=== PATIENT | male | born 1950 | race Caucasian/White ===

== ENCOUNTER → 2017-04-05 | Outpatient (CLI) | payer OTHER ==
[~2017-04-05] MED LIST: ENAL10TA88 PO; FISHOIL PO; IBUP-103 PO; INSDGIPEN SC
[2017-04-05 13:10] LABS: ESTIMATED AVERAGE GLUCOSE 192 mg/dl; HA1C FLAG Normal (Normal)
== END | disposition home or self-care (01) ==
LOC: C.LABBFT 08:15
PROVIDERS: ATTEND Internal Medicine
DX: E11.65 Type 2 diabetes mellitus with hyperglycemia (principal)

== ENCOUNTER → 2017-09-26 | Outpatient (CLI) | payer OTHER ==
[2017-09-26 13:07] LABS: ALBUMIN 3.3 gm/dl (3.4-5.0); ALT/SGPT 20 U/L (12-78); AST/SGOT 9 U/L (15-37); BLOOD UREA NITROGEN 26 mg/dl (7-18); CALCIUM 8.9 mg/dl (8.5-10.1); CARBON DIOXIDE 28 mmol/L (21-32); CREATININE 1.11 mg/dl (0.60-1.40); GLUCOSE 172 mg/dl (70-99); POTASSIUM 4.4 mmol/L (3.5-5.1); SODIUM 136 mmol/L (136-145)
[2017-09-26 13:10] LABS: ALKALINE PHOSPHATASE 95 U/L (45-117); CHOLESTEROL 269 mg/dl (0-200); LDL CHOLESTEROL CALCULATED 179 mg/dl; TOTAL PROTEIN 7.4 gm/dl (6.4-8.2)
[2017-09-26 13:24] LABS: HEMOGLOBIN A1C 8.2 % (4.5-5.6)
[2017-09-26 13:25] LABS: BASO % 0.5 %; BASO ABS # 0.04 K/uL (0-0.2); EOS % 2.6 %; EOS ABS # 0.22 K/uL (0-0.5); HEMATOCRIT 40.6 % (42-52); HEMOGLOBIN 13.5 g/dL (14.0-18.0); IG# 0.02 K/uL (0.00-0.02); LYMPH % 26.6 %; LYMPH ABS # 2.25 K/uL (1.2-3.4); MEAN CELL VOLUME 86.2 fL (80-100); MEAN CORPUSCULAR HEMOGLOBIN 28.7 pg (25-34); MEAN CORPUSCULAR HGB CONC 33.3 g/dl (32-36); MONO % 5.8 %; MONO ABS # 0.49 K/uL (0.11-0.59); NEUT % 64.3 %; NEUT ABS # 5.44 K/uL (1.4-6.5); PLATELET COUNT 179 K/uL (130-400); RED CELL DISTRIBUTION WIDTH CV 13.7 % (11.5-14.5); RED CELL DISTRIBUTION WIDTH SD 43.1 fL (36.4-46.3); WHITE BLOOD COUNT 8.46 K/uL (4.8-10.8)
== END | disposition home or self-care (01) ==
LOC: C.LABBFT 08:42
PROVIDERS: ATTEND Internal Medicine
DX: E11.65 Type 2 diabetes mellitus with hyperglycemia (principal); I10 Essential (primary) hypertension; E78.5 Hyperlipidemia, unspecified

== ENCOUNTER → 2018-03-27 | Outpatient (CLI) | payer OTHER ==
[2018-03-27 12:25] LABS: BASO % 0.5 %; BASO ABS # 0.04 K/uL (0-0.2); EOS % 2.3 %; EOS ABS # 0.18 K/uL (0-0.5); HEMATOCRIT 38.8 % (42-52); HEMOGLOBIN 12.6 g/dL (14.0-18.0); IG# 0.02 K/uL (0.00-0.02); LYMPH % 25.1 %; LYMPH ABS # 1.98 K/uL (1.2-3.4); MEAN CELL VOLUME 85.5 fL (80-100); MEAN CORPUSCULAR HEMOGLOBIN 27.8 pg (25-34); MEAN CORPUSCULAR HGB CONC 32.5 g/dl (32-36); MEAN PLATELET VOLUME 11.1 fL (7.4-10.4); MONO % 7.4 %; MONO ABS # 0.58 K/uL (0.11-0.59); NEUT % 64.4 %; NEUT ABS # 5.08 K/uL (1.4-6.5); PLATELET COUNT 198 K/uL (130-400); RED CELL DISTRIBUTION WIDTH CV 13.8 % (11.5-14.5); RED CELL DISTRIBUTION WIDTH SD 42.7 fL (36.4-46.3); WHITE BLOOD COUNT 7.88 K/uL (4.8-10.8)
[2018-03-27 12:49] LABS: ALBUMIN 3.3 gm/dl (3.4-5.0); ALKALINE PHOSPHATASE 82 U/L (45-117); ALT/SGPT 19 U/L (12-78); AST/SGOT 10 U/L (15-37); BLOOD UREA NITROGEN 25 mg/dl (7-18); CALCIUM 8.7 mg/dl (8.5-10.1); CARBON DIOXIDE 26 mmol/L (21-32); CHOLESTEROL 254 mg/dl (0-200); CREATININE 1.03 mg/dl (0.60-1.40); GLUCOSE 149 mg/dl (70-99); LDL CHOLESTEROL CALCULATED 171 mg/dl; POTASSIUM 4.2 mmol/L (3.5-5.1); SODIUM 138 mmol/L (136-145); TOTAL PROTEIN 7.2 gm/dl (6.4-8.2)
[2018-03-27 12:51] LABS: HEMOGLOBIN A1C 7.7 % (4.5-5.6)
== END | disposition home or self-care (01) ==
LOC: C.LABBFT 08:41
PROVIDERS: ATTEND Internal Medicine
DX: E11.29 Type 2 diabetes mellitus with other diabetic kidney complication (principal)

== ENCOUNTER 2019-10-15 06:18 | Observation (INO) ==
--- NOTE | 2019-09-26 09:07 | PAT Medication Instructions ---
Medication Instructions Date of Service September 26, 2019 Home Medications Medication Instructions Recorded tramadol 50 mg tablet 50 mg PO Q8H PRN #40 tab 08/27/19 pen needle, diabetic 31 gauge x #100 ea 09/17/1911/03" enalapril maleate 10 mg tablet 10 mg PO QAM #90 tab 04/19/19 [History Confirmed 09/23/19] metformin 500 mg tablet 1,000 mg PO QAM #180 tab 04/19/19 [History Confirmed 09/23/19] tramadol 50 mg tablet 50 mg PO Q8H PRN #40 tab 08/27/19 [Rx Confirmed 09/23/19] aspirin 325 mg PO DAILY PRN 09/23/19 [History Confirmed 09/23/19] ibuprofen 200 mg PO Q6H PRN 09/23/19 [History Confirmed 09/23/19] insulin degludec [Tresiba U-100 Insulin] 50 unit SUBCUT QAM 09/23/19 [History Confirmed 09/23/19] magnesium oxide 1,000 mg PO QAM 09/23/19 [History Confirmed 09/23/19] ASK your surgeon for instructions ibuprofen 200 mg PO Q6H PRN 09/23/19 [History Confirmed 09/23/19] ASK your prescriber and surgeon aspirin 325 mg PO DAILY PRN 09/23/19 [History Confirmed 09/23/19] DO NOT take the morning of surgery enalapril maleate 10 mg tablet 10 mg PO QAM #90 tab 04/19/19 [History Confirmed 09/23/19] metformin 500 mg tablet 1,000 mg PO QAM #180 tab 04/19/19 [History Confirmed 09/23/19] magnesium oxide 1,000 mg PO QAM 09/23/19 [History Confirmed 09/23/19] Take morning of surgery With a small sip of water, OTHERWISE NOTHING TO EAT OR DRINK AFTER MIDNIGHT: tramadol 50 mg tablet 50 mg PO Q8H PRN (okay to take up to 4 hours prior to surgery if needed) Take evening before surgery tramadol 50 mg tablet 50 mg PO Q8H PRN (if needed) Insulin Dependent Diabetic Patients * Test your blood sugar the morning of surgery * If Blood Sugar is GREATER THAN 150, take HALF of your regular dose of: insulin degludec [Tresiba U-100 Insulin] take 25 units * If Blood Sugar is LESS THAN 150, DO NOT TAKE ANY: insulin degludec [Tresiba U- 100 Insulin] Other Notes If you have any questions please call us at [phone] or [phone] or [phone] or [phone]
--- NOTE | 2019-09-30 09:29 | Anesthesiology Consultation ---
Date of Service September 30, 2019 Assessment & Plan (1) Encounter for pre-operative examination: - Check BSG AM DOS - ASA instructions: per surgeon/prescriber Chart Review Chart Review: Acceptable Risk for Surgery and Patient seen in Pre Admission Testing Teaching & Discussion Pre-Anesthesia Teaching/Discussion Notes: Instructed NPO after midnight before surgery,except medications with 15 cc of water. Medication instructions provided according to the PAT guidelines. History Surgery Operation Date: 10/15/19 11:40 Proposed Procedures p Right Total Knee Arthroplasty - Mich Carnes DO Height/Weight Height: 5 ft 11 in Weight: 142.1 kg Allergies Allergy/AdvReac Type Severity Reaction Status Date / Time codeine AdvReac Mild Boscobel Verified 09/30/19 09:31 "wacky" tramadol AdvReac Unknown [place]el Verified 09/30/19 09:31 "wacky" Medications Home Medications Medication Instructions Recorded Confirmed Last Taken enalapril maleate 10 mg tablet 10 mg PO QAM #90 tab 04/19/19 09/30/19 Unknown lancets 33 gauge #100 ea 04/19/19 09/30/19 Unknown metformin 500 mg tablet 1,000 mg PO QAM #180 tab 04/19/19 09/30/19 Unknown tramadol 50 mg tablet 50 mg PO Q8H PRN #40 tab 08/27/19 09/30/19 Unknown pen needle, diabetic 31 gauge x #100 ea 09/17/19 09/30/19 Unknown 3/16" aspirin 325 mg PO DAILY PRN 09/23/19 09/30/19 Unknown ibuprofen 200 mg PO Q6H PRN 09/23/19 09/30/19 Unknown insulin degludec [Tresiba U-100 50 unit SUBCUT QAM 09/23/19 09/30/19 Unknown Insulin] magnesium oxide 1,000 mg PO QAM 09/23/19 09/30/19 Unknown Past Medical History Medical History Anemia chronic, baseline hgb 12-13 range per chart review Diabetes mellitus, type 2 IDDM Diabetic neuropathy B/L LE 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 (no ROM limitations) History of prostate cancer s/p XRT Hypertension Morbid obesity Osteoarthritis Exercise / Class Metabolic Activity III < 4 Walking/Shop/Light housework Past Family History Family History Mother Family history of diabetes mellitus Past Surgical History Surgical History History of amputation of toe X2 - SMALL TOE LEFT; 2 TIPS TOES RIGHT FOOT History of surgical procedure on mouth TO REMOVE CANCER FORM LIP AND MOUTH Hx of hernia repair Hx of nasal polypectomy Past Anesthesia History No Hx of Anesthesia Complications and No Family Hx of Anesthesia Complications History of PONV No Hx of PONV and No Hx of Motion Sickness Social History Smoking Status: Former smoker Do You Dip or Chew Tobacco: No (QUIT AGE 27) Smoking End Date: Quit 50 YR AGO Hx Alcohol Use: Yes Alcohol type: beer, wine and hard liquor alcohol intake frequency: a few times a month Hx Substance Use: No Review of Systems Patient denies chest pain, shortness of breath, cough, wheezing, palpitations. Physical Exam Vital Signs VITALS BP 138/82 P 91 TEMP 98.1 SP02 98%RA RESP 18 PHYSICAL Full neck and c-spine range of motion. Full TMJ range of motion. TMD 4 finger breaths Mallampati Score 2 Dentition: full dentures upper/lower Lungs: clear throughout to auscultation Cardiac: regular rate and rhythm, no murmurs noted Spine: normal Carotid arteries: negative bruit Extremities: no edema Trimmed nuñez Testing Laboratory Results 09/30/19 09:44 09/30/19 09:44 PT 10.3 Seconds (9.0-12.0) 09/30/19 09:44 INR 1.0 (0.9-1.1) 09/30/19 09:44 APTT 28.9 Seconds (21.0-31.0) 09/30/19 09:44 Blood Type A Negative 09/30/19 09:44 Antibody Screen NEGATIVE 09/30/19 09:44 08/28/19 HGBA1C 7.9% (surgeon's office made aware) Electrocardiogram Date: 09/30/19 Normal sinus rhythm with sinus arrhythmia at 86 bpm. LAD. Low voltage QRS. Incomplete right bundle branch block. No significant change compared to 09/17/2008 per cardiology. Chest X-Ray Date: 09/30/19 Mildly enlarged heart. Atherosclerotic calcification of the thoracic aorta. Mild bibasilar atelectasis.
[2019-09-30 10:28] LABS: Basophils # (auto) 0.04 K/uL (0-0.2); Basophils % (auto) 0.5 %; Eosinophils # (auto) 0.11 K/uL (0-0.5); Eosinophils % (auto) 1.3 %; Hematocrit (blood only) 38.2 % (42-52); Hemoglobin 12.6 g/dL (14.0-18.0); Immature Granulocytes # (auto) 0.01 K/uL (0.00-0.02); Immature Granulocytes % (auto) 0.1 %; Mean Corpuscular Hemoglobin 28.6 pg (25-34); Mean Corpuscular Volume 86.6 fL (80-100); Mean Platelet Volume 10.5 fL (7.4-10.4); Monocytes # (auto) 0.52 K/uL (0.11-0.59); Monocytes % (auto) 6.3 %; Neutrophils # (auto) 5.68 K/uL (1.4-6.5); Neutrophils % (auto) 68.8 %; Platelet Count 211 K/uL (130-400); RDW Coefficient of Variation 13.8 % (11.5-14.5); RDW Standard Deviation 43.5 fL (36.4-46.3); Red Blood Count 4.41 M/uL (4.7-6.1); White Blood Count 8.26 K/uL (4.8-10.8)
--- NOTE | 2019-09-30 10:31 | XRay Report ---
TWO VIEW CHEST CLINICAL HISTORY: Preoperative examination. FINDINGS: PA and lateral chest radiographs are compared to study dated 07/18/2007 and correlated with PET/CT dated 09/05/2018. The heart is mildly enlarged noting atherosclerotic calcification of the tho racic aorta. The pulmonary vasculature is noncongested. There is mild bibasilar atelectasis. The lung s and pleural spaces are otherwise clear. There is no pneumothorax. The skeletal structures are osteo penic. The bony thorax appears intact. IMPRESSION: Mild cardiac enlargement with no active disease in the chest. ACT 112: Negative or not required by law. Electronically signed by: Darnell Fair M.D. 09/30/2019 10:30 AM
[2019-09-30 10:36] LABS: BUN Creatinine Ratio 21.9 (10-20); Creatinine Clr Calc Pharmacy 100.2 ml/min; Est GFR (African American) 89.1; Est GFR (Non-African American) 76.8; Potassium 4.3 mmol/L (3.5-5.1)
[2019-09-30 10:38] LABS: Partial Thromboplastin Ratio 1.1; Partial Thromboplastin Time 28.9 Seconds (21.0-31.0); Prothrombin Time 10.3 Seconds (9.0-12.0)
--- NOTE | 2019-09-30 12:21 | Electrocardiogram Report ---
Test Reason : Blood Pressure : / mmHG Vent. Rate : 086 BPM Atrial Rate : 086 BPM P-R Int : 136 ms QRS Dur : 104 ms QT Int : 388 ms P-R-T Axes : 063 -31 014 degrees QTc Int : 464 ms Normal sinus rhythm with sinus arrhythmia Left axis deviation Low voltage QRS Incomplete right bundle branch block Abnormal ECG When compared with ECG of 17-SEP-2008 14:20, No significant change was found Confirmed by Fran Howard ([id number]) on 09/30/2019 12:20:33 PM Referred By: Mich Carnes Confirmed By:Fran Howard
--- NOTE | 2019-10-09 07:59 | History & Physical Report ---
Date of Service October 09, 2019 Assessment & Plan (1) Right knee DJD: We will proceed with a right total knee arthroplasty. Postoperatively he will be started on aspirin for DVT prophylaxis and insulin for glucose control. He will be kept overnight in the hospital for postoperative medical management. He plans to go to outpatient physical therapy at [facility] in [place] upon discharge. Present on Admission?: Yes History of Present Illness Chief Complaint: Primary osteoarthritis of the right knee Primary Care Provider: Braydon Arroyo MD Kolton is a pleasant 69-year-old male who has been dealing with chronic increasing right knee pain. The x-rays did not look too bad so I sent him for a n MRI of his knee. The MRI showed advanced arthritis in the medial compartment with fluid in the distal medial femoral condyle. It also showed complex medial meniscus tearing. Because of his weight, he is not a candidate for a unicompartmental knee arthroplasty. After discussions in the office, he has elected to proceed with a right total knee arthroplasty. Allergies Allergy/AdvReac Type Severity Reaction Status Date / Time codeine AdvReac Mild Jordan Verified 09/30/19 09:31 "wacky" tramadol AdvReac Unknown Jordan Verified 09/30/19 09:31 "wacky" Home Medications Home Medications Medication Instructions Recorded Confirmed Type enalapril maleate 10 mg tablet 10 mg PO QAM #90 tab 04/19/19 09/30/19 History lancets 33 gauge #100 ea 04/19/19 09/30/19 History metformin 500 mg tablet 1,000 mg PO QAM #180 tab 04/19/19 09/30/19 History tramadol 50 mg tablet 50 mg PO Q8H PRN #40 tab 08/27/19 09/30/19 Rx pen needle, diabetic 31 gauge x #100 ea 09/17/19 09/30/19 Rx 3/16" aspirin 325 mg PO DAILY PRN 09/23/19 09/30/19 History ibuprofen 200 mg PO Q6H PRN 09/23/19 09/30/19 History insulin degludec [Tresiba U-100 50 unit SUBCUT QAM 09/23/19 09/30/19 History Insulin] magnesium oxide 1,000 mg PO QAM 09/23/19 09/30/19 History Past Med/Surg History Medical History Anemia chronic, baseline hgb 12-13 range per chart review Diabetes mellitus, type 2 IDDM Diabetic neuropathy B/L LE 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 (no ROM limitations) History of prostate cancer s/p XRT Hypertension Morbid obesity Osteoarthritis Surgical History History of amputation of toe X2 - SMALL TOE LEFT; 2 TIPS TOES RIGHT FOOT History of surgical procedure on mouth TO REMOVE CANCER FORM LIP AND MOUTH Hx of hernia repair Hx of nasal polypectomy Family History Mother Family history of diabetes mellitus Social History Preferred Language: Irish Communication Ability: Effective Beliefs That Will Affect Care: None Current Living Situation: Spouse Feels Safe at Home: Yes Safety Concerns: Feels Safe At This Time Smoking Status: Former smoker Do You Dip or Chew Tobacco: No (QUIT AGE 27) ; Smoking End Date: Quit 50 YR AGO ; Second Hand Exposure: Yes (PREVIOUS) ; Hx Alcohol Use: Yes Alcohol type: beer, wine and hard liquor Hx Substance Use: No Review of Systems All systems reviewed & are unremarkable except as noted in HPI & below Physical Exam Constitutional: WD/WN, vitals as above Eyes: PERRL, conjunctivae normal, anicteric sclerae ENMT: external ear and nose normal, oropharynx normal Neck: trachea midline, no thyromegaly Respiratory: normal respiratory effort Cardiovascular: RRR, no murmur, no edema Gastrointestinal (Abdomen): normal bowel sounds, soft, nontender, no hepatosplenomegaly Musculoskeletal: On physical examination of the right knee there is a trace ef fusion. There is near full range of motion and no evidence of instability. There is significant tenderness palpation along the medial and lateral joint lines and over the distal femoral condyles. Psychiatric: A+Ox3, euthymic affect Results & Data Diagnostic Findings Radiographs of the right knee demonstrate mild osteoarthritis of the right knee. MRI of the right knee does show advanced osteoarthritis of the medial compartment with fluid in the distal medial femoral condyle and complex medial meniscus tearing.
[~2019-10-15 06:18] MED LIST changes: +ACETAMINOPHEN 500 MG TAB PO SCH; +CEFAZOLIN 3000MG 72.5 ML IV SCH; -ENAL10TA88 PO; +FAMOTIDINE 20 MG TAB PO SCH; -FISHOIL PO; +GABAPENTIN 300 MG CAP PO SCH; -IBUP-103 PO; -INSDGIPEN SC; +LR 15ML/HR IV SCH; +LR 60ML/HR IV SCH; +ROPIVACAINE 0.5% HCL/PF 150 MG, BUPIVACAINE 0.5% MPF 30 ML, EPINEPHrine 30MG/30ML (OR U... INSTIL SCH; +TRANEXAMIC ACID 1,000 MG **IV Intra-op IV SCH; +TRANEXAMIC ACID 1,000 MG **IV Pre-op IV SCH; +dexAMETHasone 4 MG TAB PO SCH
[2019-10-15] MEDS ORDERED: BUPIVACAINE 0.5 % 5 MG/1 ML PF 10ML VIAL ONE (06:34)
[2019-10-15] MEDS ORDERED: BUPIVACAINE 0.25% 30 ML VIAL ONE (06:34)
[2019-10-15] MEDS ORDERED: MIDAZOLAM HCL 1 MG/ML 2ML VIAL ONE (07:49)
[2019-10-15] MEDS ORDERED: fentaNYL citrate 100 MCG/2 ML VIAL ONE (07:49)
[2019-10-15] MEDS ORDERED: ePHEDrine sulfate 50 MG/ML AMP IV PRN (09:15)
[2019-10-15] MEDS ORDERED: fentaNYL citrate 100 MCG/2 ML VIAL IV PRN (09:15)
[2019-10-15] MEDS ORDERED: ATROPINE SULFATE 0.1 MG/ML 10ML SYR IV PRN (09:15)
[2019-10-15] MEDS ORDERED: ONDANSETRON INJ 2 MG/ML 2 ML VIAL IV PRN ×2 (09:15→13:52)
[2019-10-15] MEDS ORDERED: ORTHO JOINT ANESTHETIC ONE (10:25)
--- NOTE | 2019-10-15 10:42 | History & Physical Bridge Note ---
Date of Service October 15, 2019 History & Physical Bridge Note I have examined the patient, reviewed the History & Physical and in the interval since the performance of the History & Physical I have noted the following changes of clinical significance: no changes noted
[2019-10-15] MEDS ORDERED: LIDOCAINE HCL 2% 2 ML VIAL/AMP(20MG/ML) INFIL ONE (11:36)
[2019-10-15] MEDS ORDERED: PROPOFOL IV EMULSION 10 MG/ML 20 ML VIAL IV ONE ×3 (11:36→11:56)
--- NOTE | 2019-10-15 12:43 | Operative Report ---
PG Post Operative Report Pre & Post Diagnosis Operation Date: 10/15/19 08:50 Pre-Op Diagnosis: Right Knee Degenerative Joint Disease Post-Op Diagnosis: Right Knee Degenerative Joint Disease I identified the patient and participated in the time-out.: Yes Procedure Operation Date: 10/15/19 08:50 Actual Procedures p Right Total Knee Arthroplasty (22 modifier for morbid obesity )(Right) - Mich Carnes DO Surgeon Mich Carnes DO [employer] Mich Stokes PAC Estimated Blood Loss 20 Findings Consistent with Post-Op Diagnosis Specimens Right femoral and tibial bone Complications none Disposition Disposition: Recovery Room Indications Nathanael is a pleasant 69-year-old male who presented my office with chronic increasing right knee pain. X-rays and clinical examination were diagnostic for primary osteoarthritis of the right knee. After failing conservative treatment, he elected to proceed with a right total knee arthroplasty. Description of Procedure Modifier 22: This case took about 50% longer than a standard joint replacement due to his size. He has a BMI of 43.4 which is the category of morbid obesity. I had to use a stemmed tibial component with concerns of loosening because of his size. Implants used: I used a [employer] Vanguard total knee arthroplasty system with a size 72.5 femur, 79 360 tibia with a size 5 offset and an 80 mm s stem, 34 patella, and a size 12 PS plus polyethylene bearing. All components were cemented in place with Palacos G cement. Yeyo arrived [facility] for the above procedure. He was seen in the preoperative holding area and the operative extremity was identified and signed. He was given a preoperative antibiotic, TXA, a spinal anesthetic and an adductor nerve block. He was taken back to the operating room and laid on the table in supine position. He was given basic sedation. The operative knee was then prepped and draped in sterile fashion. A timeout was done, and the patient and the operative extremity was properly identified. A midline incision was made directly over the patella. Dissection was taken down to the extensor mechanism. A subvastus arthrotomy was used. The medial retinaculum was released and the fat pad was mostly excised. The knee was flexed and the ACL, PCL, and meniscus were removed. A drill was sent down the center of the femoral canal followed by an intramedullary simon. Off that simon a distal femoral cutting block was placed. 9 mm was resected off the distal femur at 5 of valgus. A posterior referencing AP sizing guide was then placed on the distal femur. The femur measured to be a size 72.5. 2 drill holes were placed in 3 of external rotation. A 4-in-1 cutting block was then impacted into place. Anterior, posterior, and chamfer cuts were then made. The posterior stabilizing box guide was then impacted into place and the box was resected for the posterior stabilizing component. The proximal tibia was then exposed. Sequential reaming of the tibia up to a size 10 reamer was done. Off that reamer a proximal tibial resection guide was placed in the proximal tibia was resected. The tibia measured to be a size 79. The best fit was with a 5 mm offset. The central stem was then drilled and a large ring was punched. The posterior aspect of the knee was then opened up and any additional meniscus fragments and osteophytes were removed. Trial components were then placed. I used a size 12 PS plus polyethylene insert. The knee was brought through a full range of motion and felt to be stable. The patella was then everted and 8 mm was resected off the posterior aspect of the patella. The patella measured to be a size 34. 3 peg holes were then drilled. A trial patella was placed. The knee was once again brought through a full range of motion and felt to be stable. Trial components were then removed. The surrounding soft tissues were injected with 100 cc of an orthopedic pain control cocktail. All components were then cemented into place with Palacos G cement. The final polyethylene insert was then snapped into place and the anterior bar was locked. Once cement was dry the tourniquet was deflated. Hemostasis was obtained. A dilute betadyne lavage was then done for 3 minutes. The joint was then irrigated with normal saline solution. The subvastus arthrotomy was then closed with #1 Vicryl suture. The skin was closed with 2-0 Vicryl, 3-0V lock suture, and laurence. A soft compressive dressing was placed. He was then transferred to a hospital bed and taken to the postanesthesia care unit in stable condition. He tolerated the procedure well. Mich Stokes PA-C, was present for the entire procedure. He was critical for patient positioning, prepping, draping, retraction exposure, wound closure and application of sterile dressing. I attest to the content of the Intraoperative Record and any orders documented therein. Any exceptions are noted below.
--- NOTE | 2019-10-15 13:20 | XRay Report ---
XR knee RT 1 or 2V routine CLINICAL HISTORY: Surgical Post Op COMPARISON: None. DISCUSSION: Anatomic alignment post total right knee arthroplasty. Could contact between prosthetic a nd underlying bone. Expected soft tissue postoperative change. IMPRESSION: Anatomic alignment posttotal right knee arthroplasty. ACT 112: Negative or not required by law. The above report was generated using voice recognition software. It may contain grammatical, syntax or spelling errors. Electronically signed by: Dwaine Solis M.D. 10/15/2019 1:19 PM
--- NOTE | 2019-10-15 13:35 | Anesthesiology Progress Note ---
Date of Service October 15, 2019 Anesthesia Post Procedure Vital Signs Vital Signs: Temp Pulse Pulse Resp BP BP Pulse Ox 10/15/19 13:15 36.9 C 82 18 129/72 96 10/15/19 13:05 80 18 119/68 100 10/15/19 12:55 84 18 120/68 100 10/15/19 12:47 37.3 C 18 111/63 98 10/15/19 06:56 37.0 C 82 22 144/92 H 96 Transfer of Care Handoff Completed per policy Notes Mental Status: alert / awake / arousable and participated in evaluation Nausea / Vomiting: adequately controlled Pain: adequately controlled Airway Patency, RR, SpO2: stable & adequate BP & HR: stable & adequate Hydration State: stable & adequate Neuraxial Anesthesia: was administered and sensory block is resolving Anesthetic Complications: no major complications apparent and Pt Satisfied with anesthetic care
[2019-10-15] MEDS ORDERED: METOCLOPRAMIDE HCL INJ 5 MG/ML 2 ML VIAL IV PRN (13:52)
[2019-10-15] MEDS ORDERED: NALOXONE HCL 0.4 MG/1 ML VIAL/CARP IV PRN (13:52)
[2019-10-15] MEDS ORDERED: bisacodyL 10 MG SUPP PR PRN (13:52)
[2019-10-15] MEDS ORDERED: OXYCODONE HCL IR 5 MG TAB (IMMEDIATE RELEASE) PO PRN (13:52)
[2019-10-15] MEDS ORDERED: MAGNESIUM HYDROXIDE SUSP 30 ML UDC PO PRN (13:52)
[2019-10-15] MEDS ORDERED: HYDROmorphone INJ 0.5 MG/0.5 ML SYR IV PRN (13:52)
[2019-10-15] MEDS ORDERED: PHARMACY GLYCEMIC MGMT CONSULT PRN (13:59)
[2019-10-15] MEDS ORDERED: GLUCAGON FOR INJ 1 MG VIAL IM PRN (14:15)
[2019-10-15] MEDS ORDERED: DEXTROSE 50% 50 ML SYRINGE IV PRN (14:15)
[2019-10-15] MEDS ORDERED: GLUCOSE 10 TABS/TUBE PO PRN (14:15)
[2019-10-15] MEDS ORDERED: GLUCOSE 40% GEL 15 GM TUBE PO PRN (14:15)
[2019-10-15] MEDS ORDERED: CARBOHYDRATES FOR HYPOGLYCEMIA PO PRN (14:15)
[2019-10-15] MEDS: SODIUM CHLORIDE 0.9% 1000ML 1,000 ML IV SCH (14:31)
[2019-10-15] MEDS: ACETAMINOPHEN 500 MG TAB PO SCH ×2 (14:31→21:19)
--- NOTE | 2019-10-15 15:45 | Pharmacy Report ---
Glycemic Control Consultation - Date of Service October 15, 2019 - Scope Scope: Glycemic Pharmacist consulted by Mich Stokes on 10/15 for glycemic control and to write orders per [facility] inpatient glycemic control protocol - Objective Weight: 141.2 kg Accuchecks BSG (last 24hrs): 10/15/19 10/15/19 06:46 12:55 POC Glucose 164 H 193 H - Recent Pertinent Medications Outpatient Anti-diabetic Regimen: * Tresiba 50 units Qam, metformin 1 gm qam * A1c = 7.9 % 08/2019 Risk Factors for Insulin Resistance: * Steroids: dxm 8 * Diet: t2dm - Assessment & Plan Assessment & Plan: ASSESSMENT: * 69 year old s/p right TKA. Pharmacy consulted for glycemic management. Patient did receive steroids preop therefore anticipate steroid induced hyperglycemia * Will utilize basal/bolus dosing postop PLAN FOR INPATIENT GLYCEMIC CONTROL: * Holding outpatient oral diabetes medications * Basal insulin * Lantus 15-25 HS based upon BSG scale * Bolus insulin * NovoLog per scale ACHS or Q6hrs while NPO * Goal Range: Low 110 mg/dL - High 140 mg/dL * Correction Factor: 20 mg/dL/unit * Nutritional / Prandial insulin per carb ratio of 1 unit per 6 grams CHO consumed OR PLAN FOR INPATIENT GLYCEMIC CONTROL: * Continuing / Increasing / decreasing Lantus/NPH to [] units SQ BID * Continuing / changing correction factor to [] mg/dl/unit * Continuing / changing carb ratio to 1 unit per [] grams CHO consumed * Continuing / changing goal range to Low [] mg/dL - High [] mg/dL * Please note that the plan above was derived based on current level of insulin resistance and hospital stress. These recommendations are appropriate for inpati ent admission only. Plan of care upon discharge will need to be reassessed to avoid potential outpatient hypo/hyperglycemia. Thank you.
[2019-10-15] MEDS: CEFAZOLIN 2000MG 2,000 MG/15 ML SYR IV SCH (17:18)
[2019-10-15] MEDS: KETOROLAC TROMETHAMINE 15 MG/ML VIAL IV SCH (17:18)
[2019-10-15] MEDS ORDERED: INSULIN GLARGINE SOLOSTAR 100 UNITS/ML 3 ML PEN SC ONE (17:30)
[2019-10-15] MEDS: INSULIN ASPART 100 UNITS/ML 3 ML PEN SC SCH ×2 (18:32→21:15)
[2019-10-15] MEDS ORDERED: INSULIN GLARGINE SOLOSTAR 100 UNITS/ML 3 ML PEN SC SCH (21:00)
[2019-10-15] MEDS ORDERED: SENNA 8.6 MG TAB PO SCH (21:00)
[2019-10-15] MEDS: DOCUSATE SODIUM 100 MG CAP PO SCH (21:19)
[2019-10-16] MEDS: KETOROLAC TROMETHAMINE 15 MG/ML VIAL IV SCH ×3 (00:18→12:42)
[2019-10-16] MEDS: INSULIN ASPART 100 UNITS/ML 3 ML PEN SC SCH ×4 (00:19→12:47)
[2019-10-16] MEDS: CEFAZOLIN 2000MG 2,000 MG/15 ML SYR IV SCH (01:37)
[2019-10-16] MEDS: SODIUM CHLORIDE 0.9% 1000ML 1,000 ML IV SCH (01:37)
[2019-10-16] MEDS: ACETAMINOPHEN 500 MG TAB PO SCH ×2 (06:21→12:43)
--- NOTE | 2019-10-16 06:23 | Orthopedic Progress Note ---
Date of Service October 16, 2019 Assessment & Plan (1) History of total right knee replacement: Overall he is doing very well. He is not having too much pain in the right knee. He will be seen by physical therapy this morning for ambulation and range of motion exercises. He is on aspirin for DVT prophylaxis. He can be discharged home later today. He will follow-up with orthopedics in 2 weeks. Present on Admission?: Yes Subjective Kolton was seen and examined at bedside this morning. Overall is doing very well. Is not having much pain in the right knee. He has already been up and ambulating around the nurses station. He has no complaints. Physical Exam Musculoskeletal: On physical examination of the right knee, the dressing is clean and dry. He has active dorsiflexion and plantarflexion of the right ankle. Sensation is intact throughout. Results & Data ([facility]) Vital Signs (Past 12 Hours) Vital Signs Temp Pulse Resp BP Pulse Ox 10/16/19 03:58 36.6 C 79 18 110/66 97 10/15/19 23:12 36.5 C 93 H 16 117/73 95 10/15/19 21:39 36.6 C 88 18 133/81 93 Diagnostic Findings Postoperative x-rays of the right knee show the prosthesis to be in anatomic alignment without any evidence of fracture, dislocation, or loosening. PG Care Time/CCT Total # of Minutes Spent Total Time Spent with Patient: Total time spent is greater than 50% in coordination of care (as documented) at patient's floor/unit and/or counseling patient: Coding Level of Care Code None Diagnoses History of total right knee replacement Z96.651
--- NOTE | 2019-10-16 06:28 | Discharge Summary ---
Date of Service October 16, 2019 Admission HPI Per Admitting Provider Kolton is a pleasant 69-year-old male who has been dealing with chronic increasing right knee pain. The x-rays did not look too bad so I sent him for an MRI of his knee. The MRI showed advanced arthritis in the medial compartment with fluid in the distal medial femoral condyle. It also showed complex medial meniscus tearing. Because of his weight, he is not a candidate for a unicompartmental knee arthroplasty. After discussions in the office, he has elected to proceed with a right total knee arthroplasty. Principal Diagnosis Right total knee arthroplasty Discharge Data Allergies Allergy/AdvReac Type Severity Reaction Status Date / Time tramadol AdvReac Intermediate [place] Verified 10/15/19 06:52 "wacky" codeine AdvReac Mild [place] Verified 10/15/19 06:52 "wacky" Consultations 10/15/19 13:52 Consult Case Management - Discharge Planning Routine Procedures Performed Operation Date: 10/15/19 08:50 Actual Procedures p Right Total Knee Arthroplasty(Right) - Mich Carnes DO Ordered Studies 10/15/19 05:00 US - OR guided needle placemen Routine Hospital Course (1) History of total right knee replacement: On October 15, 2019 Kolton arrived at [facility] and underwent a right total knee arthroplasty without complication. He had a spinal anesthetic. Postoperatively he was started on aspirin for DVT prophylaxis and discharged to general orthopedic floors. His hospital course was uneventful. On postop day #1 his H&H was stable and his pain was well controlled. He was able to participate well with physical therapy doing ambulation and range of motion exercises. He was then discharged home. He will follow-up with orthopedics in 2 weeks. Total Time Total Time Spent Total Time Spent (In Minutes): 20 Discharge Plan Discharge Items Reason For Visit: Right Knee Degenerative Joint Disease Discharge Diagnosis: Right total knee arthroplasty Activity: As commented below Non-emergency contact: Surgeon Call non-emergency contact if: your wound has increased redness and your wound has increased drainage Follow-up/Referrals: Braydon Arroyo MD [Primary Care Provider] - Diet: Regular Addtl Attending Provider Instructions: Activity and Therapy Recommendations: * If you are using [facility] then therapy will be provided at your home until they feel you have accomplished all of your goals. * If you are using [facility] then Physical Therapy will be provided until they feel you are ready to start Outpatient Physical Therapy. * If you are not using home therapy then Outpatient Physical Therapy should start about 3-5 days from your day of surgery. Therapy will last about 6-10 weeks * It is important not to put a pillow under your knee when you are relaxing or sleeping. It is just as important to make sure you are getting your knee perfectly straight as it is to regain your knee bend. * You were shown a series of exercises in the hospital. Do these exercises three times each day including the exercises you were shown in physical therapy. * Get up and walk several times each day. For the first four weeks, try not to stand or walk for more than one hour at a time. If you do stand or walk for more than one hour, you will not hurt anything, but your leg will likely swell. * As you feel comfortable, you may change from the walker or crutches to a cane and then to independent walking. Medications: * Narcotic You will likely be sent home from the hospital with a prescription for the narcotic pain medication that worked best throughout your stay. * Aspirin Most patients will be required to take Aspirin 81mg twice a day for 6 weeks after surgery. This is obtained [id number] and a prescription is not necessary. * Other medications may be prescribed for specific circumstances. If you have any questions, please call the office at . * Resume previous home medications unless otherwise instructed TEDs/Elastic Stockings: The white elastic stockings help limit swelling and prevent blood clots from forming in your legs.~ The more you wear them, the more they work. Wear them for six weeks. Dressing Care: If the incision is not draining then you may leave the laurence open to air. If there is a little bit of drainage or if the laurence are getting stuck on your clothing then cover the incision with a dry dressing. The laurence will be removed at your 2 week follow-up appointment. Showering: You may shower 5 days from the day of surgery. Let the soapy shower water run over the laurence and pat them dry. Do not scrub or soak the incision. Things To Watch For: * Drainage from the incision site that occurs more than one week after your surgery. * Increased redness at the incision site. * Fever above 102 degrees Fahrenheit. * Unusual chest pain or shortness of breath. * Call [facility] at with any of the above problems Follow-Up Visit: Follow-up with Dr. Carnes 2-3 weeks after your day of surgery. An appointment was probably scheduled when you signed-up for surgery in the office. If you have any questions call Office Instructions: More detailed instructions as well as Frequently Asked Questions were provided in a folder by our office when you signed-up for surgery. Please review these instructions when you get home. If you have any further questions or concerns, please feel free to call the office at [phone] Pending Studies at Discharge: No Stand-Alone Forms: My [facility] Spyder Lynk, Smoking Cessation Medications and DC Order Prescriptions: New aspirin [Adult Aspirin Regimen] 81 mg tablet,delayed release (DR/EC) 81 mg PO BID Qty: 42 RF: 0 hydrocodone-acetaminophen [[place]] 5-325 mg tablet 1 tab PO Q6H PRN (Reason: pain) Qty: 30 RF: 0 Continued enalapril maleate [Vasotec] 10 mg tablet 10 mg PO QAM Qty: 90 RF: 0 metformin 500 mg tablet 1,000 mg PO QAM Qty: 180 RF: 0 (DME) lancets [OneTouch Delica Lancets] 33 gauge misc See Dose Instructions .ROUTE .MEDSUPPLY Qty: 100 RF: 0 (DME) pen needle, diabetic [BD Ultra-Fine Mini Pen Needle] 31 gauge x 3/16" needle See Rx Instructions .ROUTE .MEDSUPPLY Qty: 100 RF: 2 ibuprofen 200 mg Tablet 200 mg PO Q6H PRN (Reason: Pain) RF: 0 magnesium oxide 500 mg Tablet 1,000 mg PO QAM RF: 0 Tresiba U-100 Insulin 100 unit/mL Solution 50 unit SUBCUT QAM RF: 0 Discontinued tramadol 50 mg tablet 50 mg PO Q8H PRN (Reason: pain) Qty: 40 RF: 0 aspirin 325 mg Tablet 325 mg PO DAILY PRN (Reason: Pain) RF: 0 Krames/Other Patient Handouts: Diabetes Resources, Diabetes Treating Minor Foot Infections, Diabetes Healthy Meals, Blood Sugar Manage Exercise, Diabetes Keep Feet Healthy, Diabetes Inspect Feet, Diabetes Body Care, Diabetes Sick Day Plan, Diabetes Exercise Benefits, Diabetes Exercise Get Started, Diabetes Activity Tips, Diabetes Driving Issues, Diabetes Exercise Plan, Diabetes Taking Meds, Diabetes Foot Care Program, Diabetes Toolkit Admission Data Admit Date/Time: 10/15/19 12:50 Attending Provider: Mich Carnes Admit Provider: Mich Carnes Primary Care Provider: Braydon Arroyo Coding Level of Care Code D/C Day Management <30 mins Diagnoses History of total right knee replacement Z96.651
[2019-10-16 06:47] LABS: Hematocrit (blood only) 32.5 % (42-52); Hemoglobin 11.1 g/dL (14.0-18.0); Mean Corpuscular Hemoglobin 28.8 pg (25-34); Mean Corpuscular Hgb Conc 34.2 g/dL (32-36); Mean Corpuscular Volume 84.2 fL (80-100); Mean Platelet Volume 10.6 fL (7.4-10.4); Platelet Count 213 K/uL (130-400); RDW Coefficient of Variation 13.4 % (11.5-14.5); RDW Standard Deviation 40.2 fL (36.4-46.3); Red Blood Count 3.86 M/uL (4.7-6.1); White Blood Count 13.53 K/uL (4.8-10.8)
[2019-10-16 07:25] LABS: BUN Creatinine Ratio 23.8 (10-20); Calcium 8.5 mg/dl (8.5-10.1); Creatinine Clr Calc Pharmacy 73.2 ml/min; Est GFR (African American) 61.2; Est GFR (Non-African American) 52.8; Potassium 4.2 mmol/L (3.5-5.1)
--- NOTE | 2019-10-16 08:02 | Anesthesiology Progress Note ---
Date of Service October 16, 2019 Anesthesia Post Procedure Vital Signs Vital Signs: Temp Pulse Pulse Pulse Resp BP Pulse Ox 10/16/19 03:58 36.6 C 79 18 110/66 97 10/15/19 23:12 36.5 C 93 H 16 117/73 95 10/15/19 21:39 36.6 C 88 18 133/81 93 10/15/19 16:28 36.6 C 84 18 129/88 96 10/15/19 15:41 85 18 126/79 95 10/15/19 14:38 83 16 131/80 10/15/19 14:04 79 16 138/75 10/15/19 13:35 36.3 C L 80 16 128/77 98 10/15/19 13:15 36.9 C 82 18 129/72 96 10/15/19 13:05 80 18 119/68 100 10/15/19 12:55 84 18 120/68 100 10/15/19 12:47 37.3 C 18 111/63 98 Pain Intensity Right Knee: Pain Intensity: 0 Notes Mental Status: alert / awake / arousable and participated in evaluation Patient Amnestic to Procedure: Yes Nausea / Vomiting: adequately controlled Pain: adequately controlled Airway Patency, RR, SpO2: stable & adequate BP & HR: stable & adequate Hydration State: stable & adequate Neuraxial Anesthesia: was administered and sensory block resolved Anesthetic Complications: no major complications apparent and Pt Satisfied with anesthetic care
[2019-10-16] MEDS: DOCUSATE SODIUM 100 MG CAP PO SCH (08:33)
[2019-10-16] MEDS ORDERED: INSULIN GLARGINE SOLOSTAR 100 UNITS/ML 3 ML PEN SC SCH (09:00)
[2019-10-16] MEDS ORDERED: ENALAPRIL MALEATE 10 MG TAB PO SCH (09:00)
[2019-10-16] MEDS ORDERED: ASPIRIN 81 MG ECTAB PO SCH (09:00)
[2019-10-16] MEDS ORDERED: MULTIVITAMIN TAB PO SCH (09:00)
[2019-10-17] MEDS ORDERED: INSULIN GLARGINE SOLOSTAR 100 UNITS/ML 3 ML PEN SC SCH (09:00)
== END 2019-10-16 13:17 | disposition home or self-care (01) ==
LOC: ASU 06:18 → 3E 06:18

== ENCOUNTER 2022-11-21 06:26 | Observation (INO) ==
--- NOTE | 2022-10-21 09:43 | PAT Medication Instructions ---
Medication Instructions Date of Service October 21, 2022 Home Medications Medication Instructions Recorded pen needle, diabetic 31 gauge x #100 ea 09/17/19 3/16" (BD Ultra-Fine Mini Pen Needle) oxycodone-acetaminophen 5 mg-325 1 tab PO Q6H PRN pain #14 tabs 12/13/21 mg tablet (Percocet) Medication List enalapril maleate 10 mg tablet (Vasotec) 10 mg PO QAM lancets 33 gauge ([employer] Delica Lancets) metformin 500 mg tablet 1,000 mg PO QAM pen needle, diabetic 31 gauge x 3/16" (BD Ultra-Fine Mini Pen Needle) ibuprofen 200 mg tablet 400 mg PO Q6H PRN Pain insulin degludec 100 unit/mL subcutaneous solution (Tresiba U-100 Insulin) 51 unit subcut QAM magnesium oxide 500 mg tablet 500 mg PO Q OTHER DAY acetaminophen 325 mg tablet (Tylenol) 650 mg PO QID PRN Fever Or Pain gabapentin 100 mg capsule 100 mg PO HS PRN leg pain oxycodone-acetaminophen 5 mg-325 mg tablet (Percocet) 1 tab PO Q6H PRN pain tobramycin 0.3 %-dexamethasone 0.1 % eye drops,suspension 1 drp ophthalmic (eye) TID Medications pen needle, diabetic 31 gauge x 3/16" (BD Ultra-Fine Mini Pen Needle) ibuprofen 200 mg tablet 400 mg PO Q6H PRN Pain insulin degludec 100 unit/mL subcutaneous solution (Tresiba U-100 Insulin) 51 unit subcut QAM magnesium oxide 500 mg tablet 500 mg PO Q OTHER DAY acetaminophen 325 mg tablet (Tylenol) 650 mg PO QID PRN Fever Or Pain gabapentin 100 mg capsule 100 mg PO HS PRN leg pain oxycodone-acetaminophen 5 mg-325 mg tablet (Percocet) 1 tab PO Q6H PRN pain tobramycin 0.3 %-dexamethasone 0.1 % eye drops,suspension 1 drp ophthalmic (eye) TID DO NOT take the morning of surgery enalapril maleate 10 mg tablet (Vasotec) 10 mg PO QAM Take morning of surgery With a small sip of water, OTHERWISE NOTHING TO EAT OR DRINK AFTER MIDNIGHT: Insulin Dependent Diabetic Patients * Test your blood sugar the morning of surgery * If Blood Sugar is GREATER THAN 150, take HALF of your regular dose of: * If Blood Sugar is LESS THAN 150, DO NOT TAKE ANY: Other Notes If you have any questions please call us at [phone] or [phone] or [phone] or [phone]
--- NOTE | 2022-10-21 09:44 | PAT Medication Instructions ---
Medication Instructions Date of Service October 21, 2022 Home Medications Medication Instructions Recorded pen needle, diabetic 31 gauge x #100 ea 09/17/19 3/16" (BD Ultra-Fine Mini Pen Needle) oxycodone-acetaminophen 5 mg-325 1 tab PO Q6H PRN pain #14 tabs /13/21 mg tablet (Percocet) enalapril maleate 10 mg tablet (Vasotec) 10 mg PO QAM lancets 33 gauge (OneTouch Delica Lancets) metformin 500 mg tablet 1,000 mg PO QAM pen needle, diabetic 31 gauge x 3/16" (BD Ultra-Fine Mini Pen Needle) ibuprofen 200 mg tablet 400 mg PO Q6H PRN insulin degludec 100 unit/mL subcutaneous solution (Tresiba U-100 Insulin) 51 unit subcut QAM magnesium oxide 500 mg tablet 500 mg PO Q OTHER DAY acetaminophen 325 mg tablet (Tylenol) 650 mg PO QID PRN gabapentin 100 mg capsule 100 mg PO HS PRN oxycodone-acetaminophen 5 mg-325 mg tablet (Percocet) 1 tab PO Q6H PRN tobramycin 0.3 %-dexamethasone 0.1 % eye drops,suspension 1 drp ophthalmic (eye) TID ASK your surgeon for instructions ibuprofen 200 mg tablet 400 mg PO Q6H PRN DO NOT take the morning of surgery enalapril maleate 10 mg tablet (Vasotec) 10 mg PO QAM metformin 500 mg tablet 1,000 mg PO QAM magnesium oxide 500 mg tablet 500 mg PO Q OTHER DAY Take morning of surgery With a small sip of water, OTHERWISE NOTHING TO EAT OR DRINK AFTER MIDNIGHT: acetaminophen 325 mg tablet (Tylenol) 650 mg PO QID PRN(if needed) oxycodone-acetaminophen 5 mg-325 mg tablet (Percocet) 1 tab PO Q6H PRN(if needed) tobramycin 0.3 %-dexamethasone 0.1 % eye drops,suspension 1 drp ophthalmic (eye) TID Take evening before surgery acetaminophen 325 mg tablet (Tylenol) 650 mg PO QID PRN(if needed) gabapentin 100 mg capsule 100 mg PO HS PRN(if needed) oxycodone-acetaminophen 5 mg-325 mg tablet (Percocet) 1 tab PO Q6H PRN(if needed) tobramycin 0.3 %-dexamethasone 0.1 % eye drops,suspension 1 drp ophthalmic (eye) TID Insulin Dependent Diabetic Patients * Test your blood sugar the morning of surgery * If Blood Sugar is GREATER THAN 150, take HALF of your regular dose of: insulin degludec 100 unit/mL subcutaneous solution (Tresiba U-100 Insulin) 51 unit subcut QAM. * If Blood Sugar is LESS THAN 150, DO NOT TAKE ANY: insulin degludec 100 unit/mL subcutaneous solution (Tresiba U-100 Insulin). Other Notes If you have any questions please call us at [phone] or [phone] or [phone] or [phone]
--- NOTE | 2022-10-24 09:23 | Anesthesiology Consultation ---
Date of Service October 24, 2022 Assessment & Plan (1) Encounter for pre-operative examination: Chart Review Chart Review: Acceptable Risk for Surgery and Patient seen in Pre Admission Testing - Check BSG AM DOS -Pt is NOT an ideal Same Day Joint candidate Per PAT appt on 10/24/22, patient denies any recent travel or large group activities. Pt is vaccinated for Covid. Will leave to surgeon's discretion if preop Covid testing needed. Educated on importance of using Covid precautions one week prior to surgery Right TKA 10/15/19= Done under SAB at L2-L3 with two attempts Teaching & Discussion Pre-Anesthesia Teaching/Discussion Notes: Instructed NPO after midnight before surgery,except medications with 15 cc of water. Medication instructions provided according to the PAT guidelines. History Surgery Operation Date: 11/21/22 07:00 Proposed Procedures p Left Total Knee Arthroplasty - Mich Carnes DO Height/Weight Height: 5 ft 11 in Weight: 137.3 kg Allergies Allergy/AdvReac Type Severity Reaction Status Date / Time tramadol AdvReac Intermediate [place] Verified 10/20/22 13:40 "wacky" codeine AdvReac Mild [place] Verified 10/20/22 13:40 "wacky" Medications Home Medications Medication Instructions Recorded Confirmed Last Taken enalapril maleate 10 mg tablet 10 mg PO QAM #90 tabs 04/19/19 10/20/22 10/12/19 07:00 (Vasotec) lancets 33 gauge (OneTouch Delica #100 ea 04/19/19 09/21/21 Unknown Lancets) metformin 500 mg tablet 1,000 mg PO QAM #180 tabs 04/19/19 10/20/22 10/11/19 07:00 pen needle, diabetic 31 gauge x #100 ea 09/17/19 09/21/21 Unknown 16" (BD Ultra-Fine Mini Pen Needle) ibuprofen 200 mg tablet 400 mg PO Q6H PRN Pain 09/23/19 10/20/22 10/08/19 insulin degludec 100 unit/mL 51 unit subcut QAM 09/23/19 10/20/22 10/15/19 05:00 subcutaneous solution (Tresiba 25 units U-100 Insulin) magnesium oxide 500 mg tablet 500 mg PO Q OTHER DAY 09/23/19 10/20/22 10/13/19 acetaminophen 325 mg tablet 650 mg PO QID PRN Fever Or Pain 05/17/21 10/20/22 Unknown (Tylenol) gabapentin 100 mg capsule 100 mg PO HS PRN leg pain 05/17/21 10/20/22 Unknown oxycodone-acetaminophen 5 mg-325 1 tab PO Q6H PRN pain #14 tabs 08/02/21 10/20/22 Unknown mg tablet (Percocet) tobramycin 0.3 %-dexamethasone 0.1 1 drp ophthalmic (eye) TID 10/20/22 10/20/22 Unknown % eye drops,suspension Past Medical History Medical History (Updated 10/25/22 @ 08:35 by Debbi Khanna PA-C) Diabetes mellitus, type 2 IDDM Diabetic neuropathy B/L LE 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 (patient doesn't "think" he had XRT or chemo; possible localized XRT per previous records) (no ROM limitations) History of prostate cancer 2017- s/p XRT Hypertension Morbid obesity Osteoarthritis Exercise / Class Metabolic Activity II 4-5 Yardwork/Stairs/Walk up hill (one flight of stairs - no chest pain or SOB) Past Family History Family History Mother Family history of diabetes mellitus Other No family history of adverse response to anesthesia Past Surgical History Surgical History History of amputation of toe X2 - SMALL TOE LEFT; 2 TIPS TOES RIGHT FOOT History of surgical procedure on mouth TO REMOVE CANCER FORM LIP AND MOUTH History of total right knee replacement (~09/2019) Hx of bilateral cataract extraction Hx of hernia repair Hx of nasal polypectomy Social History Smoking Status: Former smoker Do You Dip or Chew Tobacco: No (Quit 20 years ago) Smoking End Date: Quit at 20 years of age - smoked x 5 years Hx Alcohol Use: Yes Alcohol type: beer, wine and hard liquor alcohol intake frequency: holidays/special occasions only Hx Substance Use: No substance use type: does not use Review of Systems Patient denies chest pain, shortness of breath, dyspnea on exertion, reflux, cough, wheezing, palpitations. No hx of seizures, stroke, [place], apnea/snoring. No hx of blood clots or blood transfusions Physical Exam Vital Signs VITALS BP 142/83 P 82 TEMP 97.9 SP02 97% RESP 16 Constitutional no acute distress ENMT Mouth: no TMJ clicking Thyromental Distance: > or= 3.5 Finger Breadths (4.0) Mallampati Class: II All teeth missing Neck + facial hair (advised to shave/trim nuñez); neck extension not limited Respiratory normal respiratory effort; no respiratory distress Auscultation: lungs clear to auscultation bilaterally; no wheezes Cardiovascular Rate/Rhythm: regular rate and regular rhythm Heart Sounds: no murmur Vessels: no carotid bruit Musculoskeletal Spine: no pain with cervical ROM Extremities: extremities normal to inspection Psychiatric Orientation: alert Lab Results Anesthesia Preop Results Results Anesthesia Widget: WBC 8.76 K/ul (4.8-10.8) 10/24/22 Hgb 14.2 g/dl (14.0-18.0) 10/24/22 Hct 41.5 % (42.0-52.0) L 10/24/22 Plt 217 K/uL (130-400) 10/24/22 Na 135 mmol/L (136-145) L 10/24/22 K 4.2 mmol/L (3.5-5.1) 10/24/22 Cl 102 mmol/L (98-107) 10/24/22 CO2 27 mmol/L (21-32) 10/24/22 BUN 25 mg/dl (6-23) H 10/24/22 Creat 0.85 mg/dl (0.6-1.4) 10/24/22 Glucose Level 212 mg/dl (70-99(Fasting)) H 10/24/22 PT 10.5 Seconds (9.0-12.0) 10/24/22 PTT 29.0 Seconds (21.0-31.0) 10/24/22 INR 1.0 (0.9-1.1) 10/24/22 HA1c 7.9 % (4.5-5.6) H 10/24/22 Blood Type A Negative 10/24/22 Antibody Screen NEGATIVE 10/24/22 Testing Electrocardiogram Date: 10/24/22 Findings: + NSR @ (78bpm ) Left axis deviation Incomplete RBBB When compared to EKG from Aug 02, 2021- premature supraventricular complexes are no longer present, nonspecific T wave abnormality no longer evident in anterior leads per cardio Chest X-Ray Date: 10/24/22 Findings: + NAD FINDINGS: PA and lateral chest radiographs are compared to study dated 05/17/2021 and correlated with chest CT dated 08/02/2021. The heart is mildly enlarged noting atherosclerotic calcification of the thoracic aorta. There are calcified mediastinal lymph nodes. The lungs and pleural spaces are clear noting mild bibasilar scarring/atelectasis. There is no pneumothorax. The skeletal structures are osteopenic. The bony thorax appears intact. COVID-19 Risk Screen Screening Information COVID-19 Screen Date: 10/24/22 Exposure 21 Days Family/Household +COVID Last 21 Days: No Exposure 10 Days Any COVID Exposure Last 10 Days: No Symptoms Last 10 Days Experienced COVID Sx Last 10 Days: No + COVID 0-90 Days COVID + in Last 0-90 Days: No Risk Plan COVID Risk Plan: No Risk Identified Patient Education COVID Preop Screening Education Complete: Yes
[~2022-11-21 06:26] MED LIST changes: -CEFAZOLIN 3000MG 72.5 ML IV SCH; -LR 15ML/HR IV SCH; +LR 500ML BOLUS, THEN 15ML/HR IV SCH; +ORTHO JOINT MIX INFIL SCH; -ROPIVACAINE 0.5% HCL/PF 150 MG, BUPIVACAINE 0.5% MPF 30 ML, EPINEPHrine 30MG/30ML (OR U... INSTIL SCH
--- NOTE | 2022-11-21 06:31 | History & Physical Report ---
Date of Service November 21, 2022 Assessment & Plan (1) Left knee DJD: We will proceed with a left total knee arthroplasty. Postoperatively he will be started on aspirin for DVT prophylaxis and kept overnight in the hospital for postoperative medical management. He plans to have the hospitalist set up home health before discharge. History of Present Illness Chief Complaint: Osteoarthritis of the left knee. Primary Care Provider: June Obregon DO Huffman is a pleasant 72-year-old male who I did a right knee replacement on in the past. He is doing okay with that. Unfortunately he is dealing more with left knee pain. X-rays and clinical examination have been diagnostic for advanced osteoarthritis of the left knee. After failing conservative treatment, he has elected to proceed with a left total knee arthroplasty. Allergies Allergy/AdvReac Type Severity Reaction Status Date / Time tramadol AdvReac Intermediate [place] Verified 10/20/22 13:40 "wacky" codeine AdvReac Mild [place] Verified 10/20/22 13:40 "wacky" Home Medications Medication Instructions Recorded Confirmed Type enalapril maleate 10 mg tablet 10 mg PO QAM #90 tabs 04/19/19 10/20/22 History (Vasotec) lancets 33 gauge (OneTouch Delica #100 ea 04/19/19 09/21/21 History Lancets) metformin 500 mg tablet 1,000 mg PO QAM #180 tabs 04/19/19 10/20/22 History pen needle, diabetic 31 gauge x #100 ea 09/17/19 09/21/21 Rx 3/16" (BD Ultra-Fine Mini Pen Needle) ibuprofen 200 mg tablet 400 mg PO Q6H PRN Pain 09/23/19 10/20/22 History insulin degludec 100 unit/mL 51 unit subcut QAM 09/23/19 10/20/22 History subcutaneous solution (Tresiba U-100 Insulin) magnesium oxide 500 mg tablet 500 mg PO Q OTHER DAY 09/23/19 10/20/22 History acetaminophen 325 mg tablet 650 mg PO QID PRN Fever Or Pain 05/17/21 10/20/22 History (Tylenol) gabapentin 100 mg capsule 100 mg PO HS PRN leg pain 05/17/21 10/20/22 History oxycodone-acetaminophen 5 mg-325 1 tab PO Q6H PRN pain #14 tabs 08/02/21 10/20/22 Rx mg tablet (Percocet) tobramycin 0.3 %-dexamethasone 0.1 1 drp ophthalmic (eye) TID 10/20/22 10/20/22 History % eye drops,suspension Past Med/Surg History Medical History Diabetes mellitus, type 2 IDDM Diabetic neuropathy B/L LE 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 (patient doesn't "think" he had XRT or chemo; possible localized XRT per previous records) (no ROM limitations) History of prostate cancer 2018- s/p XRT Hypertension Morbid obesity Osteoarthritis Surgical History History of amputation of toe X2 - SMALL TOE LEFT; 2 TIPS TOES RIGHT FOOT History of surgical procedure on mouth TO REMOVE CANCER FORM LIP AND MOUTH History of total right knee replacement (~09/2019) Hx of bilateral cataract extraction Hx of hernia repair Hx of nasal polypectomy Family History Mother Family history of diabetes mellitus Other No family history of adverse response to anesthesia Social History Smoking Status: Former smoker Smoking End Date: Quit at 20 years of age - smoked x 5 years; Second Hand Exposure: No; Do You Dip or Chew Tobacco: No (Quit 20 years ago); Tobacco Cessation Education Requested by Patient: No Hx Alcohol Use: Yes Alcohol type: beer, wine and hard liquor Hx Substance Use: No Preferred Language: [place] Communication Ability: Effective Enamel Pulverizer Required: No Beliefs That Will Affect Care: None marital status: Current Living Situation: Spouse Other Information That Helps Us Care for You: No Feels Safe at Home: Yes Safety Concerns: Feels Safe At This Time Assistive Devices: Denture - Upper and Denture - Lower Assistive Devices Comment: does not wear his dentures Review of Systems All systems reviewed & are unremarkable except as noted in HPI & below. Physical Exam On physical examination of the left knee, he has range of motion from 5 to 120 degrees. He has a trace effusion. He has a slight varus deformity.. Constitutional WD/WN, vitals as above Eyes PERRL, conjunctivae normal, anicteric sclerae ENMT external ear and nose normal, oropharynx normal Neck trachea midline, no thyromegaly Respiratory normal respiratory effort, lungs clear to auscultation Cardiovascular RRR, no murmur, no edema Gastrointestinal (Abdomen) normal bowel sounds, soft, nontender, no hepatosplenomegaly Skin no rashes, warm and dry Psychiatric A+Ox3, euthymic affect Results & Data Results & Data Laboratory Results . Diagnostic Findings X-rays of the left knee show advanced osteoarthritis with joint space narrowing, osteophyte formation, and [id number] articulation.. PG Care Time/CCT Total # of Minutes Spent Total Time Spent with Patient: Total time spent is greater than 50% in coordination of care (as documented) at patient's floor/unit and/or counseling patient: Coding Level of Care Code None Diagnoses Left knee DJD M17.12
[2022-11-21] MEDS ORDERED: EPINEPHrine INJ 1 MG/ML AMP ONE (06:39)
[2022-11-21] MEDS ORDERED: BUPIVACAINE 0.25% PF 30 ML VIAL ONE (06:39)
[2022-11-21] MEDS ORDERED: DEXAMETHASONE SOD INJ 4 MG/ML VIAL ONE (06:39)
[2022-11-21] MEDS ORDERED: BUPIVACAINE 0.5 % 5 MG/1 ML PF 10ML VIAL ONE (06:39)
[2022-11-21] MEDS ORDERED: fentaNYL citrate PF 100 MCG/2 ML VIAL ONE (08:00)
[2022-11-21] MEDS ORDERED: MIDAZOLAM HCL 1 MG/ML 2ML VIAL ONE (08:00)
[2022-11-21] MEDS ORDERED: ORTHO JOINT ANESTHETIC ONE (08:44)
[2022-11-21] MEDS ORDERED: ATROPINE SULFATE 0.1 MG/ML 10ML SYR IV PRN (08:54)
[2022-11-21] MEDS ORDERED: fentaNYL citrate PF 100 MCG/2 ML VIAL IV PRN (08:54)
[2022-11-21] MEDS ORDERED: ePHEDrine sulfate 50 MG/ML AMP IV PRN (08:54)
[2022-11-21] MEDS ORDERED: ONDANSETRON INJ 2 MG/ML 2 ML VIAL IV PRN ×2 (08:54→12:01)
[2022-11-21] MEDS ORDERED: KETAMINE 50 MG/5 ML SYRINGE ONE (09:23)
[2022-11-21] MEDS ORDERED: LIDOCAINE 2% MPF LOCAL 5 ML VIAL ONE (10:02)
[2022-11-21] MEDS ORDERED: PROPOFOL IV EMULSION 10 MG/ML 20 ML VIAL IV ONE (10:02)
--- NOTE | 2022-11-21 10:34 | Operative Report ---
PG Post Operative Report Pre & Post Diagnosis Operation Date: 11/21/22 08:50 Pre-Op Diagnosis: Left Knee Degenerative Joint Disease Post-Op Diagnosis: Left Knee Degenerative Joint Disease I identified the patient and participated in the time-out.: Yes Procedure Operation Date: 11/21/22 08:50 Actual Procedures p Left Total Knee Arthroplasty(Left) - Mich Carnes DO Surgeon Mich Carnes DO Investigation Division Sergeant Mich Stokes PA-C Estimated Blood Loss 30 Findings Consistent with Post-Op Diagnosis Specimens Left femoral and tibial bone Description of Procedure Implants used: I used a Reji Persona total knee arthroplasty system with a size 11 standard PS femur, F tibia, 34 oval patella, and a size 10 CPS polyethylene bearing. All components were cemented in place with Biomet cement. Yeyo arrived [facility] for the above procedure. He was seen in the preoperative holding area and the operative extremity was identified and signed. He was given a preoperative antibiotic, TXA, a spinal anesthetic and an adductor nerve block. He was taken back to the operating room and laid on the table in supine position. He was given basic sedation. The operative knee was then prepped and draped in sterile fashion. A timeout was done, and the patient and the operative extremity was properly identified. A midline incision was made directly over the patella. Dissection was taken down to the extensor mechanism. A midvastus arthrotomy was used. The medial retinaculum was released and the fat pad was mostly excised. The knee was flexed and the ACL, PCL, and meniscus were removed. A drill was sent down the center of the femoral canal followed by an intramedullary simon. Off that simon a distal femoral cutting block was placed. 9 mm was resected off the distal femur at 5 of valgus. A posterior referencing AP sizing guide was then placed on the distal femur. The femur measured to be a size 11. 2 drill holes were placed in 3 of external rotation. A 4-in-1 cutting block was then impacted into place. Anterior, posterior, and chamfer cuts were then made. The proximal tibia was then exposed. An external tibial alignment guide was placed. A tibial cut guide was then anchored in place and the proximal tibia was then resected. The posterior aspect of the knee was then opened up and any additional meniscus fragments and osteophytes were removed. The tibia measured to be a size F. The tibial plate was then placed in the appropriate rotation and the tibia was drilled and punched. Trial components were then placed. I used a size 10 CPS polyethylene insert. The knee was brought through a full range of motion and felt to be stable. The peg holes for the femoral component were then drilled. The patella was then everted and 9 mm was resected off the posterior aspect of the patella. The patella measured to be a size 34 oval. 3 peg holes were then drilled. A trial patella was placed. The knee was once again brought through a full range of motion and felt to be stable. Trial components were then removed. The surrounding soft tissues were injected with 100 cc of an orthopedic pain control cocktail. All components were then cemented into place with Biomet cement. The final polyethylene insert was then snapped into place. Once cement was dry the tourniquet was deflated. Hemostasis was obtained. A dilute betadyne lavage was then done for 3 minutes. The joint was then irrigated with normal saline solution. The midvastus arthrotomy was then closed with #1 Vicryl suture. The skin was closed with 2-0 Vicryl, 3-0V lock suture, and laurence. A soft compressive dressing was placed. He was then transferred to a hospital bed and taken to the postanesthesia care unit in stable condition. He tolerated the procedure well. Mich Stokes PA-C, was present for the entire procedure. He was critical for patient positioning, prepping, draping, retraction exposure, wound closure and application of sterile dressing. I attest to the content of the Intraoperative Record and any orders documented therein. Any exceptions are noted below.
--- NOTE | 2022-11-21 11:08 | XRay Report ---
XR knee LT 1 or 2V routine HISTORY: 72 years-old Male Surgical Post Op [knee total joint arthroplasty COMPARISON: Knee radiographs 08/24/2022 TECHNIQUE: 3 views of the left knee FINDINGS: Total joint arthroplasty with patellar resurfacing. Anterior midline skin laurence are noted along wit h expected postoperative soft tissue swelling with deep tissue air. No acute fracture, dislocation or unexpected opaque foreign body. IMPRESSION: Total joint arthroplasty with expected postoperative changes. ACT 112: Negative or not required by law. The above report was generated using voice recognition software. It may contain grammatical, syntax o r spelling errors. Electronically signed by: Sulaiman Delgado M.D. 11/21/2022 11:07 AM
[2022-11-21] MEDS ORDERED: PHARMACY GLYCEMIC MGMT CONSULT PRN (12:01)
[2022-11-21] MEDS ORDERED: bisacodyL 10 MG SUPP PR PRN (12:01)
[2022-11-21] MEDS ORDERED: GABAPENTIN 100 MG CAP PO PRN (12:01)
[2022-11-21] MEDS ORDERED: NALOXONE HCL 0.4 MG/1 ML VIAL/CARP IV PRN (12:01)
[2022-11-21] MEDS ORDERED: HYDROmorphone INJ 0.5 MG/0.5 ML SYR IV PRN (12:01)
[2022-11-21] MEDS ORDERED: MAGNESIUM HYDROXIDE SUSP 30 ML UDC PO PRN (12:01)
[2022-11-21] MEDS ORDERED: METOCLOPRAMIDE HCL INJ 5 MG/ML 2 ML VIAL IV PRN (12:01)
[2022-11-21] MEDS: SODIUM CHLORIDE 0.9% 1000ML 1,000 ML IV SCH ×2 (12:27→21:42)
[2022-11-21] MEDS ORDERED: MAGNESIUM OXIDE 400 MG TAB PO SCH (12:45)
[2022-11-21] MEDS ORDERED: LANTUS PER UNIT CHARGE SQ ONE (12:45)
[2022-11-21] MEDS: INSULIN ASPART PER UNIT CHARGE SC SCH ×3 (13:26→21:46)
[2022-11-21] MEDS: KETOROLAC TROMETHAMINE 15 MG/ML VIAL IV SCH ×2 (13:30→17:11)
[2022-11-21] MEDS: TOBRAMYCIN/DEXAMETHASONE OPH SUSP 2.5 ML BTL OP SCH ×3 (13:52→20:09)
--- NOTE | 2022-11-21 14:03 | Pharmacy Report ---
Pharmacy Glycemic Short Note 2 - Date of Service November 21, 2022 - Glycemic Short BSG Results (Last 24 hours): 11/21/22 11/21/22 11/21/22 07:03 10:53 12:06 POC Glucose 137 H 165 H 185 H OUTPATIENT ANTIDIABETIC REGIMEN: * tresiba 25 units QAM, metformin 1000mg BID * HbA1C 7.9% 10/24/22 ASSESSMENT: * Patient is a 72 YOM admitted post left total knee arthroplasty. Pharmacy is consulted for glycemic management while inpatient. * Patient received 8mg dexamethasone this AM, fasting BSG was within goal. Patient reported that the 25 units of Tresiba was given this AM. Will give 15 units of Lantus x1 to cover DXM and reassess basal need in AM. * Prandial BSGs slightly above goal range, begin Novolog at a stress of 3. PLAN FOR INPATIENT GLYCEMIC CONTROL: * Hold outpatient oral diabetes medications * Basal insulin * Reassess basal insulin in AM * Bolus insulin * NovoLog per scale ACHS or Q6hrs while NPO * Goal Range: Low 110 mg/dL - High 140 mg/dL * Correction Factor: 20 mg/dL/unit * Nutritional / Prandial insulin per carb ratio of 1 unit per 6 grams CHO consumed
[2022-11-21] MEDS: ACETAMINOPHEN 500 MG TAB PO SCH ×2 (14:39→21:46)
--- NOTE | 2022-11-21 16:25 | Anesthesiology Progress Note ---
Date of Service November 21, 2022 Anesthesia Post Procedure Vital Signs Vital Signs: Temp Pulse Pulse Resp BP BP Pulse Ox 11/21/22 15:36 36.8 C 70 16 122/74 97 11/21/22 14:32 36.5 C 79 18 125/73 97 11/21/22 13:09 36.4 C L 63 14 114/67 99 11/21/22 12:47 35.9 C L 65 17 110/66 97 11/21/22 12:10 11/21/22 12:10 36.3 C L 16 113/69 97 11/21/22 11:50 68 12 116/65 95 11/21/22 11:40 67 12 113/75 93 11/21/22 11:30 36.5 C 68 15 110/67 96 11/21/22 11:20 67 16 115/64 97 11/21/22 11:10 72 17 108/69 95 11/21/22 11:00 70 16 103/63 95 11/21/22 10:50 36.1 C L 75 16 107/65 94 11/21/22 06:51 36.7 C 73 21 127/70 99 O2 Del Method O2 Flow Rate 11/21/22 15:36 Room Air 11/21/22 14:32 Room Air 11/21/22 13:09 Room Air 11/21/22 12:47 Room Air 11/21/22 12:10 Room Air 11/21/22 12:10 Room Air 11/21/22 11:50 Room Air 11/21/22 11:40 Room Air 11/21/22 11:30 Room Air 11/21/22 11:20 Room Air 11/21/22 11:10 Room Air 11/21/22 11:00 Oxymask 5 11/21/22 10:50 Oxymask 9 11/21/22 06:51 Room Air Pain Intensity Left Knee: Pain Intensity: 4 Transfer of Care Handoff Completed per policy Notes Mental Status: alert / awake / arousable Patient Amnestic to Procedure: Yes Nausea / Vomiting: adequately controlled Pain: adequately controlled Airway Patency, RR, SpO2: stable & adequate BP & HR: stable & adequate Hydration State: stable & adequate Anesthetic Complications: no major complications apparent
[2022-11-21] MEDS: oxyCODONE HCL IR 5 MG TAB (IMMEDIATE RELEASE) PO PRN (17:13)
[2022-11-21] MEDS: ceFAZolin 2000MG 2,000 MG/15 ML SYR IV SCH (17:37)
[2022-11-21] MEDS: ASPIRIN 81 MG ECTAB PO SCH (20:07)
[2022-11-21] MEDS: DOCUSATE SODIUM 100 MG CAP PO SCH (20:07)
[2022-11-21] MEDS ORDERED: SENNA 8.6 MG TAB PO SCH (21:00)
[2022-11-22] MEDS: ceFAZolin 2000MG 2,000 MG/15 ML SYR IV SCH (00:16)
[2022-11-22] MEDS: KETOROLAC TROMETHAMINE 15 MG/ML VIAL IV SCH ×2 (00:17→05:30)
[2022-11-22] MEDS: ACETAMINOPHEN 500 MG TAB PO SCH (05:31)
--- NOTE | 2022-11-22 06:30 | Orthopedic Progress Note ---
Date of Service November 22, 2022 Assessment & Plan (1) Status post left knee replacement: Overall he is doing well. Is not having much pain in the left knee. He will be seen by physical therapy today for ambulation and range of motion exercises. He is on aspirin for DVT prophylaxis. He can be discharged home later today. He will follow-up with orthopedics in 2 weeks. Inder Huffman was seen and examined at bedside this morning. Overall he is doing fa irly well. He is not in too much pain in the left knee. He has not ambulated much on his leg yet. He has no complaints.. Review of Systems All systems reviewed & are unremarkable except as noted in HPI & below. Physical Exam On physical examination of the left knee, the dressing is clean and dry. His leg is out full extension. He has active dorsiflexion plantarflexion of his left ankle.. Results & Data Results & Data Laboratory Results . Diagnostic Findings Postoperative x-rays of the left knee show the prosthesis to be in anatomic al ignment without any evidence of fracture, screws, or loosening. PG Care Time/CCT Total # of Minutes Spent Total Time Spent with Patient: Total time spent is greater than 50% in coordination of care (as documented) at patient's floor/unit and/or counseling patient: Coding Level of Care Code 10530 Post Operative Follow-Up Diagnoses Status post left knee replacement Z96.652
--- NOTE | 2022-11-22 06:31 | Discharge Summary ---
Date of Service November 22, 2022 Admission HPI (Per Admitting) Nathanael is a pleasant 72-year-old male who I did a right knee replacement on in the past. He is doing okay with that. Unfortunately he is dealing more with left knee pain. X-rays and clinical examination have been diagnostic for advanced osteoarthritis of the left knee. After failing conservative treatment, he has elected to proceed with a left total knee arthroplasty. Admission Exam (Per Admitting) On physical examination of the left knee, he has range of motion from 5 to 120 degrees. He has a trace effusion. He has a slight varus deformity.. Principal Diagnosis Same as "Discharge Diagnosis" noted below under Discharge Instructions. Discharge Exam On physical examination of the left knee, the dressing is clean and dry. His leg is out full extension. He has active dorsiflexion plantarflexion of his left ankle.. Discharge Data Procedures Performed Operation Date: 11/21/22 08:50 Actual Procedures p Left Total Knee Arthroplasty(Left) - Mich Carnes DO Ordered Studies 11/21/22 05:00 US - OR guided needle placemen Routine Hospital Course (1) Status post left knee replacement: On November 21, 2022 Nathanael arrived at [facility] and underwent a left knee replaced without complication. He had a spinal anesthetic. Postoperatively he was started on aspirin for DVT prophylaxis and transferred to the general orthopedic floors. His hospital course was uneventful. On postop day #1, his vital signs were stable and his pain was well controlled. He was able to participate well with physical therapy doing ambulation and range of motion exercises. He was then discharged home. He will follow-up with orthopedics in 2 weeks. PG Care Time/CCT Total # of Minutes Spent Total Time Spent with Patient: Total time spent is greater than 50% in coordination of care (as documented) at patient's floor/unit and/or counseling patient: Discharge Plan Discharge Items Patient Disposition: Home - Home Health Services Reason For Visit: Left Knee Degenerative Joint Disease Discharge Diagnosis: Left knee replacement Activity: Per Instructions section Non-emergency contact: Surgeon Call non-emergency contact if: your wound has increased redness and your wound has increased drainage Follow-up/Referrals: June Obregon DO [Primary Care Provider] - Diet: Regular Addtl Attending Provider Instructions: Activity and Therapy Recommendations: * If you are using [facility] then therapy will be provided at your home until they feel you have accomplished all of your goals. * If you are using [facility] then Physical Therapy will be provided until they feel you are ready to start Outpatient Physical Therapy. * If you are not using home therapy then Outpatient Physical Therapy should start about 3-5 days from your day of surgery. Therapy will last about 6-10 weeks * It is important not to put a pillow under your knee when you are relaxing or sleeping. It is just as important to make sure you are getting your knee perfectly straight as it is to regain your knee bend. * You were shown a series of exercises in the hospital. Do these exercises three times each day including the exercises you were shown in physical therapy. * Get up and walk several times each day. For the first four weeks, try not to stand or walk for more than one hour at a time. If you do stand or walk for more than one hour, you will not hurt anything, but your leg will likely swell. * As you feel comfortable, you may change from the walker or crutches to a cane and then to independent walking. Medications: * Narcotic You will likely be sent home from the hospital with a prescription for the narcotic pain medication that worked best throughout your stay. * Aspirin Most patients will be required to take Aspirin 81mg twice a day for 6 weeks after surgery. This is obtained [id number] and a prescription is not necessary. * Other medications may be prescribed for specific circumstances. If you have any questions, please call the office at . * Resume previous home medications unless otherwise instructed TEDs/Elastic Stockings: The white elastic stockings help limit swelling and prevent blood clots from forming in your legs.~ The more you wear them, the more they work. Wear them for six weeks. Dressing Care: The dressing can be changed after physical therapy on postop day #1. Daily dry dressing changes for a few days, especially if the incision is still draining some. If the incision is not draining then you may leave the laurence open to air. If there is a little bit of drainage or if the laurence are getting stuck on your clothing then cover the incision with a dry dressing. The laurence will be removed at your 2 week follow-up appointment. Showering: You may shower 5 days from the day of surgery as long as the incision is no longer draining. You may shower with the laurence exposed. Let soapy water run over the laurence and pat them dry. Do not scrub or soak the incision. Things To Watch For: * Drainage from the incision site that occurs more than one week after your surgery. * Increased redness at the incision site. * Fever above 102 degrees Fahrenheit. * Unusual chest pain or shortness of breath. * Call [facility] at with any of the above problems Follow-Up Visit: Follow-up with Dr. Carnes's PA (Mich Stokes) 2-3 weeks after your day of surgery. He will remove your laurence and answer any questions. If you have any additional questions or concerns, Dr Carnes is usually in the office at the same time and will be available An appointment was probably scheduled when you signed-up for surgery in the office. If you have any questions call Office Instructions: More detailed instructions as well as Frequently Asked Questions were provided in a folder by our office when you signed-up for surgery. Please review these instructions when you get home. If you have any further questions or concerns, please feel free to call the office at [phone] Pending Studies at Discharge: No Stand-Alone Forms: My [facility] [employer] Medications and DC Order Prescriptions: New aspirin 81 mg Tablet,Delayed Release (Dr/Ec) 81 mg PO BID 42 Days Qty: 84 0RF Continued enalapril maleate [Vasotec] 10 mg tablet 10 mg PO QAM Qty: 90 metformin 500 mg tablet 1,000 mg PO QAM Qty: 180 (DME) lancets [OneTouch Delica Lancets] 33 gauge misc See Dose Instructions .ROUTE .MEDSUPPLY Qty: 100 Patient Comments: test twice a day Rx Instructions: As directed (DME) pen needle, diabetic [BD Ultra-Fine Mini Pen Needle] 31 gauge x 3/16" needle See Rx Instructions .ROUTE .MEDSUPPLY Qty: 100 2RF Rx Instructions: inject BID ibuprofen 200 mg Tablet 400 mg PO Q6H PRN (Reason: Pain) magnesium oxide 500 mg Tablet 500 mg PO Q OTHER DAY insulin degludec [Tresiba U-100 Insulin] 100 unit/mL Solution 25 unit SUBCUT QAM acetaminophen [Tylenol] 325 mg Tablet 650 mg PO QID PRN (Reason: Fever Or Pain) gabapentin 100 mg capsule 100 mg PO HS PRN (Reason: leg pain) tobramycin-dexamethasone 0.3-0.1 % drops,suspension 1 drp ophthalmic (eye) TID oxycodone-acetaminophen [Percocet] 5-325 mg tablet 1 tab PO Q6H PRN (Reason: pain) Qty: 30 0RF Admission Data Admit Date/Time: 11/21/22 10:50 Attending Provider: Mich Carnes Admit Provider: Mich Carnes Primary Care Provider: June Obregon
[2022-11-22] MEDS: ASPIRIN 81 MG ECTAB PO SCH (08:18)
[2022-11-22] MEDS: DOCUSATE SODIUM 100 MG CAP PO SCH (08:18)
[2022-11-22] MEDS: TOBRAMYCIN/DEXAMETHASONE OPH SUSP 2.5 ML BTL OP SCH (08:19)
[2022-11-22] MEDS: INSULIN ASPART PER UNIT CHARGE SC SCH (08:20)
[2022-11-22] MEDS ORDERED: LANTUS PER UNIT CHARGE SQ SCH (09:00)
[2022-11-22] MEDS ORDERED: MULTIVITAMIN TAB PO SCH (09:00)
[2022-11-22] MEDS ORDERED: ENALAPRIL MALEATE 10 MG TAB PO SCH (09:00)
[2022-11-22] MEDS: oxyCODONE HCL IR 5 MG TAB (IMMEDIATE RELEASE) PO PRN (11:27)
== END 2022-11-22 11:49 | disposition home health service (06) ==
LOC: 3E 06:26 → ASU 06:26

== ENCOUNTER 2024-05-30 13:20 | Inpatient (IN) ==
--- NOTE | 2024-05-30 13:49 | Emergency Department Note ---
Impression & Plan Right knee pain, Septic joint, Leukocytosis, SELMA (acute kidney injury), Acute hyperglycemia ED Provider Note NAME: MYRIAM WILLSON AGE: 74 SEX: M : 1950 ARRIVES VIA: Walk-In INFORMANT: [Patient][family] ED PROVIDER(S): [Darnell Perkins MD] CHIEF COMPLAINT: Abnormal labs HISTORY OF PRESENT ILLNESS: The patient is a 74-year-old male who states that he began having some first right toe pain and right knee pain about 5 or so days ago. 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 Patient states that 2 days ago, he noted redness to the right knee and the pain seemed to increase. The pain was quite intense when he tried to ambulate. He saw orthopedics and he had a aspiration of the knee performed. The fluid has grown staph. Outpatient laboratory testing yesterday showed evidence for acute kidney injury as well as a white count of around 19,000. Patient was referred to our ER for hospitalization. There has been no fever. The patient is not short of breath. He does admit to some increased thirst as well as increased urination. He states the right knee is quite painful when he tries to ambulate. The patient is on an antibiotic for the right first toe, he has been taking it now for 4 days--looking at his outpatient med rec, he appears to currently be on cefdinir. PMHx/PSHx/Social Hx: See Below PHYSICAL EXAM: GENERAL: Patient is in no acute distress. HEENT: No acute trauma, normocephalic atraumatic, mucous membranes moist, no nasal congestion. NECK: No stridor, no adenopathy, no meningismus, trachea is midline. LUNGS: Clear to auscultation bilaterally, no wheeze, no rhonchi, breath sounds equal. HEART: Mildly tachycardic with a regular rhythm, no murmurs. ABDOMEN: Soft, nontender, no peritonitis. Obese. EXTREMITIES: No cyanosis. The patient does have erythema to the right anterior knee. Warmth is present over the erythema. The knee joint is painful with any movement. There is a 1 cm lesion/ulcer to the distal aspect of the right first toe with some subtle surrounding erythema. NEUROLOGIC: Oriented x 3, no acute motor or sensory deficits, no focal weakness. SKIN: No jaundice, no diaphoresis. DIFFERENTIAL DIAGNOSIS: Bacteremia or sepsis, dehydration, electrolyte imbalance, DKA, septic joint, among others. EMERGENCY DEPARTMENT PROCEDURES: MEDICAL DECISION MAKING: There is a moderate leukocytosis, this would be consistent with infection. The patient is anemic however, this has been documented before. There was a normal platelet count. No worrisome coagulopathy. Sodium was low at 131. Creatinine was high at 2.4, consistent with acute kidney injury. Glucose was over 400. Based on the renal panel testing, the patient does not appear to be in DKA but rather, just hyperglycemic. There was no elevation to the lactic acid level, this makes severe sepsis less likely. There were a few subtle liver enzyme elevations. ECG shows what appears to be a sinus rhythm, no ST elevation. Cardiac enzyme testing x 1 is slightly elevated. This troponin elevation could be secondary to cardiac injury or just mismatch from his illness. Urinalysis suggests some dehydration, no obvious infection. Chest film does not show pneumonia or CHF. On exam, the patient's right knee was erythematous, warm and painful with movement. Looking at the patient's outpatient laboratory workup, he does have findings of a sensitive staff aureus on his right knee aspiration. I did speak with Dr. Prajapati of orthopedics. Orthopedics will follow the patient in the hospital. The patient will very likely require an orthopedic surgical intervention. The patient is aware of his findings, he is in need of a hospital stay and IV antibiotic therapy. He requires serum glucose control and IV hydration. The patient was given IV daptomycin and IV cefepime as antibiotic coverage. He received 10 units of IV insulin for his higher blood sugar. He was given 1 L of IV saline. He currently seems to be resting comfortably. I did speak with case management, the on-call hospitalist was consulted. Prior/Outside records/notes reviewed: Recent outpatient laboratory testing for which she was sent to our ED. Orthopedic visit note from 05/28/2024 describing his presentation, their concerns and the likely need for OR intervention. ECG per my interpretation: Indication was possible sepsis. The ECG shows a sinus rhythm with PVCs. The rate is 94. There is no acute ST elevation. There is some nonspecific ST change. The QTc is 472. Continuous Cardiac Monitoring per my interpretation: An order was placed for continuous cardiac monitoring. The monitor shows a rate of 104 with sinus tachycardia. Imaging/x-ray results per my interpretation: Chest x-ray shows some potential atelectasis at the left base, no focal pneumonia or CHF. Chronic Medical/Social conditions affecting care: Advanced age. Care/Management discussed with: Case management, the on-call hospitalist. Orthopedics-Dr. Prajapati. Level of care consideration(s): After review of the information above and other included data: --I believe the patient requires escalation of care to admission Critical Care Note: I have personally spent 46 minutes of critical care time in the direct management of this patient. This includes bedside care, interpretation of diagnostic studies, and testing, discussion with consultants, patient, and family members, and other required patient management activities. This 46 minutes is in excess of all separately billable procedures. 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 (possible localized XRT per previous records) No reported ROM limitations Hypertension Surgical History History of amputation of toe x2 - left small toe, 2 "tips" right toes History of surgical procedure on mouth Cancer removal from lip/mouth History of tonsillectomy History of tooth extraction History of total left knee replacement Left TKA (11/21/22): SAB at L3/4, 1 attempt + regional at [facility] History of total right knee replacement (~2019) Hx of hernia repair Hx of LASIK Hx of nasal polypectomy Family History Mother Family history of diabetes mellitus Other No family history of adverse response to anesthesia Social History Smoking Status: Unknown if ever smoked Tobacco Type: Cigarettes and Smokeless Tobacco (Dip or Chew) Cigarettes Per Day: only at age 20; Second Hand Exposure: No; Do You Dip or Chew Tobacco: No (Quit 20 years ago); Hx Alcohol Use: Yes Alcohol type: beer, wine and hard liquor Preferred Language: Turkmen Communication Ability: Effective Telephone Switchboard Operator Required: No Beliefs That Will Affect Care: None marital status: Current Living Situation: Spouse Current Living Situation Comment: with Feels Safe at Home: Yes Assistive Devices: Glasses and Walker Allergies Allergies Allergy/AdvReac Type Severity Reaction Status Date / Time tramadol AdvReac Intermediate [place] Verified 05/30/24 10:02 "wacky" codeine AdvReac Mild [place] Verified 05/30/24 10:02 "wacky" Home Meds Home Medications Medication Instructions Recorded Confirmed enalapril maleate 10 mg tablet 10 mg PO QAM #90 tabs 04/19/19 05/30/24 (Vasotec) lancets 33 gauge (OneTouch Delica #100 ea 04/19/19 01/11/23 Lancets) metformin 500 mg tablet 1,000 mg PO BID #180 tabs 04/19/19 05/30/24 ibuprofen 200 mg tablet 400 mg PO Q6H PRN Pain 09/23/19 05/30/24 insulin degludec 100 unit/mL 51 unit subcut QAM 09/23/19 05/30/24 subcutaneous solution (Tresiba U-100 Insulin) magnesium oxide 500 mg PO Q OTHER DAY PRN Other 09/23/19 05/30/24 acetaminophen 325 mg tablet 650 mg PO QID PRN Fever Or Pain 05/17/21 05/30/24 (Tylenol) gabapentin 100 mg capsule 100 - 200 mg PO HS PRN leg pain 05/17/21 05/30/24 cefdinir 300 mg capsule 300 mg PO BID 05/30/24 05/30/24 Previous Rx's Medication Instructions Recorded pen needle, diabetic 31 gauge x #100 ea 09/17/1911/03" (BD Ultra-Fine Mini Pen Needle) Results & Data (ED) Vital Signs Vital Signs - 24 hr 05/30/24 13:24 05/30/24 13:53 05/30/24 13:53 Temperature 35.8 C L 36.9 C Temperature Source Temporal Artery Scan Oral Pulse Rate 104 H 88 Pulse Rate [Apical] 78 Pulse Rhythm Regular Pulse Rhythm [Apical] Regular Pulse Strength [Apical] Normal Respiratory Rate 22 20 20 Respiratory Effort / Characteristics Non-Labored Spontaneous Non-Labored Spontaneous Respiratory Depth Normal Normal Respiratory Pattern Regular Blood Pressure 121/72 Blood Pressure [Right Arm] Blood Pressure [Right Radial Artery] 96/72 L Blood Pressure Mean 88 Blood Pressure Mean [Right Arm] Blood Pressure Mean [Right Radial Artery] 80 Blood Pressure Position [Right Radial Artery] Semi-fowlers Pulse Oximetry 92 98 96 Oxygen Delivery Method Room Air Room Air Room Air Sepsis Recent Fever Within 48 Hours No Sepsis New/Unexplained Change in Mental Status No Sepsis Action Taken by Nursing No Action Required 05/30/24 14:08 Temperature 36.9 C Temperature Source Oral Pulse Rate Pulse Rate [Apical] 86 Pulse Rhythm Pulse Rhythm [Apical] Regular Pulse Strength [Apical] Normal Respiratory Rate 20 Respiratory Effort / Characteristics Non-Labored Spontaneous Respiratory Depth Normal Respiratory Pattern Regular Blood Pressure Blood Pressure [Right Arm] 109/64 Blood Pressure [Right Radial Artery] 109/64 Blood Pressure Mean Blood Pressure Mean [Right Arm] 79 Blood Pressure Mean [Right Radial Artery] 79 Blood Pressure Position [Right Radial Artery] Semi-fowlers Pulse Oximetry 96 Oxygen Delivery Method Room Air Sepsis Recent Fever Within 48 Hours Sepsis New/Unexplained Change in Mental Status Sepsis Action Taken by Half-Way Medications Current Medication List: was personally reviewed by me Laboratory Data Attestation: I reviewed the patient's lab results. 05/30/24 13:42 05/30/24 13:42 Lab Results 05/30/24 05/30/24 05/30/24 Range/Units 13:42 14:03 14:05 WBC 15.18 H (4.8-10.8) K/ul RBC 4.07 L (4.70-6.10) M/uL Hgb 11.7 L (14.0-18.0) g/dl Hct 33.8 L (42.0-52.0) % MCV 83.0 (80.0-100.0) fL MCH 28.7 (25.0-34.0) pg MCHC 34.6 (32.0-36.0) g/dL RDW Std Deviation 42.1 (36.4-46.3) fL RDW Coeff of Anisha 13.7 (11.5-14.5) % Plt Count 265 (130-400) K/uL MPV 11.0 (9.4-12.4) fL Immature Gran % (Auto) 0.6 % Neut % (Auto) 83.0 % Lymph % (Auto) 7.5 % [place] % (Auto) 7.8 % Eos % (Auto) 0.8 % Baso % (Auto) 0.3 % Neut # (Auto) 12.61 H (1.40-6.50) K/uL Lymph # (Auto) 1.14 L (1.20-3.40) K/uL [place] # (Auto) 1.18 H (0.11-0.59) K/uL Eos # (Auto) 0.12 (0.00-0.50) K/uL Baso # (Auto) 0.04 (0.00-0.20) K/uL Immature Gran # (Auto) 0.09 (0.01-0.20) K/uL PT 12.2 H (9.0-12.0) Seconds INR 1.1 (0.9-1.1) APTT 30 (21-31) Seconds PTT Ratio 1.1 Sodium 131 L (136-145) mmol/L Potassium 3.7 (3.5-5.1) mmol/L Chloride 98 (98-107) mmol/L Carbon Dioxide 23 (21-32) mmol/L Anion Gap 10 (3-11) BUN 43 H (6-23) mg/dl Creatinine 2.44 H (0.6-1.4) mg/dl Est Cr Clr Drug Dosing 37.0 ml/min eGFR 26.91 BUN/Creatinine Ratio 17.6 (10-20) Glucose 421 H* (70-99(Fasting)) mg/dl POC Glucose 417 H* (70-99) mg/dl Lactate 1.3 (0.4-2.0) mmol/L Calcium 8.7 (8.6-10.3) mg/dl Magnesium 1.7 (1.7-2.4) mg/dl Total Bilirubin 1.0 (0.2-1.0) mg/dl Direct Bilirubin 0.3 H (0-0.2) mg/dl AST 10 L (13-39) U/L ALT 13 (7-52) U/L Alkaline Phosphatase 132 H (34-104) U/L Troponin I High Sens 48.7 H (0-20) pg/ml Total Protein 7.1 (6.0-8.3) gm/dl Albumin 3.1 L (3.4-5.0) gm/dl Urine Color Dark Yellow Urine Appearance Turbid A (Clear) Urine pH 5.5 (4.5-7.5) Ur Specific [place] 1.018 (1.000-1.030) Urine Protein 2+ H (Negative) Urine Glucose (UA) 2+ H (Negative) Urine Ketones Trace H (Negative) Urine Blood 1+ H (Negative) Urine Nitrite Negative (Negative) Urine Bilirubin Negative (Negative) Urine Urobilinogen Negative (Negative) Ur Leukocyte Esterase Trace H (Negative) Urine WBC (Auto) 6-10 H (0-5) /hpf Urine RBC (Auto) 0-2 (0-2) /hpf U Hyaline Cast (Auto) >20 H (0-2) /lpf U Epithel Cells (Auto) >20 H (0-2) /hpf Urine Bacteria (Auto) None Seen (None Seen) Granular Casts Present A (None Prsent) /lpf Administered Medications Sodium Chloride (Nss) 1,000 mls @ 999 mls/hr IV .Q1H1M DORIS Stop: 05/30/24 15:45 Last Admin: 05/30/24 14:29 Dose: 999 mls/hr Documented By: GILMA Discontinued Medications Cefepime HCl (Maxipime 2000mg) 2,000 mg in 20 mls @ 5 mls/min IV NOW STA; Protocol Stop: 05/30/24 14:04 Last Admin: 05/30/24 14:29 Dose: 5 mls/min Documented By: GILMA Insulin Human Regular (Novolin-R Insulin Per Unit Charge) 10 units IV NOW STA Stop: 05/30/24 14:18 Last Admin: 05/30/24 14:36 Dose: 10 units Documented By: GILMA Co-signed By: Discharge Plan Visit Data Chief Complaint: Abnormal Labs/Diagnostic Testing Stated Complaint: REF BY DOC, HAS INFECTION ED Provider: Darnell Perkins Discharge Problem: Right knee pain, Septic joint, Leukocytosis, SELMA (acute kidney injury), Acute hyperglycemia Patient Disposition: Admitted As Inpatient Condition: Serious Forms Stand Alone Forms: My [facility] Prescriptions Prescriptions: No Action enalapril maleate [Vasotec] 10 mg tablet 10 mg PO QAM Qty: 90 metformin 500 mg tablet 1,000 mg PO BID Qty: 180 (DME) lancets [OneTouch Delica Lancets] 33 gauge misc See Dose Instructions .ROUTE .MEDSUPPLY Qty: 100 Patient Comments: test twice a day Rx Instructions: As directed (DME) pen needle, diabetic [BD Ultra-Fine Mini Pen Needle] 31 gauge x 3/16" needle See Rx Instructions .ROUTE .MEDSUPPLY Qty: 100 2RF Rx Instructions: inject BID ibuprofen 200 mg Tablet 400 mg PO Q6H PRN (Reason: Pain) magnesium oxide 500 mg Tablet 500 mg PO Q OTHER DAY PRN (Reason: Other) insulin degludec [Tresiba U-100 Insulin] 100 unit/mL Solution 51 unit SUBCUT QAM acetaminophen [Tylenol] 325 mg Tablet 650 mg PO QID PRN (Reason: Fever Or Pain) gabapentin 100 mg capsule 100 - 200 mg PO HS PRN (Reason: leg pain) cefdinir 300 mg capsule 300 mg PO BID Referrals Referrals: June Obregon DO [Primary Care Provider] - Discharge Problem: Right knee pain Qualifiers: Chronicity: acute Qualified Code(s): M25.561 - Pain in right knee Septic joint Qualifiers: Septic arthritis location: knee Septic arthritis organism: staphylococcal L aterality: right Qualified Code(s): M00.061 - Staphylococcal arthritis, right knee Leukocytosis Qualifiers: Leukocytosis type: unspecified Qualified Code(s): D72.829 - Elevated white blood cell count, unspecified
[2024-05-30 14:07] LABS: Basophils # (auto) 0.04 K/uL (0.00-0.20); Basophils % (auto) 0.3 %; Eosinophils # (auto) 0.12 K/uL (0.00-0.50); Eosinophils % (auto) 0.8 %; Hematocrit (blood only) 33.8 % (42.0-52.0); Hemoglobin 11.7 g/dl (14.0-18.0); Immature Granulocytes # (auto) 0.09 K/uL (0.01-0.20); Immature Granulocytes % (auto) 0.6 %; Lymphocytes # (auto) 1.14 K/uL (1.20-3.40); Lymphocytes % (auto) 7.5 %; Mean Corpuscular Hemoglobin 28.7 pg (25.0-34.0); Mean Corpuscular Hgb Conc 34.6 g/dL (32.0-36.0); Monocytes # (auto) 1.18 K/uL (0.11-0.59); Monocytes % (auto) 7.8 %; Neutrophils # (auto) 12.61 K/uL (1.40-6.50); Platelet Count 265 K/uL (130-400); RDW Coefficient of Variation 13.7 % (11.5-14.5); RDW Standard Deviation 42.1 fL (36.4-46.3); Red Blood Count 4.07 M/uL (4.70-6.10); White Blood Count 15.18 K/ul (4.8-10.8)
[2024-05-30 14:21] LABS: INR 1.1 (0.9-1.1); Partial Thromboplastin Ratio 1.1; Partial Thromboplastin Time 30 Seconds (21-31); Prothrombin Time 12.2 Seconds (9.0-12.0)
[2024-05-30] MEDS: CEFEPIME 2000MG 2,000 MG/20 ML SYR IV STA (14:29)
[2024-05-30] MEDS: SODIUM CHLORIDE 0.9% 1,000 ML IV SCH (14:29)
[2024-05-30 14:36] LABS: Appearance Urine Turbid (Clear); Bacteria Urine Automated None Seen (None Seen); Bilirubin Urine Negative (Negative); Blood Urine 1+ (Negative); Cast Urine Automated >20 /lpf (0-2); Color Urine Dark Yellow; Epithelial Cell Urine Auto >20 /hpf (0-2); Glucose Urine UA 2+ (Negative); Granular Casts Urine Present /lpf (None Prsent); Ketones Urine Trace (Negative); Leukocyte Esterase Urine Trace (Negative); Nitrite Urine Negative (Negative); Protein Urine 2+ (Negative); RBC Urine Automated 0-2 /hpf (0-2); Specific Gravity Urine 1.018 (1.000-1.030); Urobilinogen Urine Negative (Negative); pH Urine 5.5 (4.5-7.5)
[2024-05-30] MEDS: NovoLIN-R INSULIN PER UNIT CHARGE IV STA (14:36)
[2024-05-30 14:39] LABS: Albumin Level 3.1 gm/dl (3.4-5.0); BUN Creatinine Ratio 17.6 (10-20); Bilirubin Direct 0.3 mg/dl (0-0.2); Calcium 8.7 mg/dl (8.6-10.3); Magnesium 1.7 mg/dl (1.7-2.4); Potassium 3.7 mmol/L (3.5-5.1); Total Protein 7.1 gm/dl (6.0-8.3)
[2024-05-30 14:50] LABS: Troponin I High Sensitivity 48.7 pg/ml (0-20)
[2024-05-30] MEDS: DAPTOmycin 600 MG in SYRINGE 0 ML IV STA (15:09)
--- NOTE | 2024-05-30 15:11 | XRay Report ---
XR chest 1V portable CLINICAL HISTORY: Sepsis. COMPARISON STUDY: Chest CT August 02, 2021. Chest radiograph October 24, 2022. FINDINGS: Lung volumes are mildly diminished. Lungs are clear. There is no pneumothorax or pleural ef fusion. Mild cardiomegaly is unchanged. Mediastinal contours are normal. There is no evidence for pul monary edema. IMPRESSION: No acute cardiopulmonary findings. No change in appearance of the chest. ACT 112: Negative or not required by law. Electronically signed by: Daniel Fields M.D. 05/30/2024 3:09 PM
[2024-05-30] MEDS: POTASSIUM CHLORIDE CRTAB 20 MEQ TABCR PO STA (15:15)
--- NOTE | 2024-05-30 15:19 | History & Physical Report ---
Date of Service May 30, 2024 Assessment & Plan (1) Septic joint: (2) Acute hyperglycemia: (3) SELMA (acute kidney injury): Plan Yeyo Bauer is a 74y/o M with PMHx significant for DM type II, diabetic polyneuropathy, HTN, morbid obesity, anemia, hypersomnia with sleep apnea, history of prostate cancer, history of cancer, left fifth toe amputation and hyperlipidemia who presented to the ED for evaluation of a right knee infection via referral from [place] orth[facility]. Septic Joint of Right Knee: Patient was seen and evaluated as an outpatient by [facility] on 05/28/2024 due to pain and swelling in his right knee. He underwent a right knee replacement performed by Dr. Mich Carnes approximately 4 years ago. Examination at that time showed a large right knee joint effusion, which was subsequently aspirated in the office. The fluid was very cloudy and suggestive of an acute infection, therefore was sent off for cultures. Patient was placed on the surgical schedule tomorrow (05/31/2024) for an open incision and drainage with a poly exchange of his right knee at that appointment. Patient's preliminary right knee effusion culture is growing MSSA. Vitals stable, mildly hypotensive. WBC 15k, CXR with no acute cardiopulmonary findings. UA without any evidence of bacteria. Procalcitonin pending. Ortho consult pending. S/p 2g IV cefepime + 600mg IV daptomycin. Blood culture pending. Will continue with IV cefepime and daptomycin for now. Pain control. NPO at midnight pending surgical intervention tomorrow as per above. Acute Kidney Injury (SELMA): Patient noted to have an SELMA with Cr of 2.44 on admission. Baseline Cr ~1.0 per chart review. Suspect due to relative hypovolemia and systemic illness. Currently producing dark, yellow urine; will defer additional lab/imaging diagnostic pending fluid resuscitation. S/p 1L NSS in the ED, continue IVF with 1L LR's @ 80cc/hr x 2 bags. Avoid nephrotoxic medications when able. Monitor renal function closely with daily AM labs and renally dose medications when able. Elevated Troponin, PVCs: Troponin 48.7 on presentation. EKG showed sinus rhythm with frequent PVCs. K+ 3.7 on admission, 40mEq oral KCL given in ED. Trend troponin Q6H. EKG with chest pain as needed. Daily EKG x 1 tomorrow AM. Cardiac monitoring in place. Continue to closely monitor electrolytes. HTN: Home enalapril on hold for now given SELMA. Chronic Anemia: Hgb 11.7 on admission, baseline Hgb ~12-13 per chart review. Will continue to monitor Hgb closely with daily AM labs. Right Great Toe Ulceration: Patient was also recently seen and evaluated by Dr. Edmond Drew at [facility] in [place] on 05/27/2024 due to a great right toe wound. He had the wound debrided at that appointment and was prescribed a course of Omnicef. Wound care consult pending. DM Type II Acute Hyperglycemia: BSG 421 on presentation. S/p 10 units of Novolin-R insulin in the ED. BSG improved to 375 at 15:18 following insulin dose. Hold home agents, utilize SSI regimen while inpatient. CC diet, BSG checks ACHS. Most recent Hgb A1c was 8.4% on 05/29/2024. Glycemic pharmacy consulted for further recommendations. Other Chronic Medical Conditions: Diabetic polyneuropathy --> Can continue home gabapentin as previously scheduled. CPAP HS ordered for ELVA. DVT Prophylaxis: SCDs/TEDs for now pending surgical intervention tomorrow. Code Status: FULL CODE PCP: June Obregon DO Disposition: Admit to Med/Surg + Telemetry Patient seen in collaboration with Dr. Bustos. Please see addendum. I spent a total of 65 minutes coordinating, documenting, and providing care for this patient excluding time spent in the performance of separately billed services. This included personally reviewing all current laboratories and imaging studies, medical reconciliation, outpatient chart review and discussion with specialists. This chart was completed in part utilizing Speech Voice Recognition Software. Grammatical errors, random word insertions, pronoun errors, and incomplete sentences are an occasional consequence of this system due to software limitations, ambient noise, and hardware issues. Any formal questions or concerns about the content, text, or information contained within the body of this dictation should be directly addressed to the provider for clarification. History of Present Illness Chief Complaint: Right Knee Infection Primary Care Provider: June Obregon DO Yeyo Bauer is a 74y/o M with PMHx significant for DM type II, diabetic polyneuropathy, HTN, morbid obesity, anemia, hypersomnia with sleep apnea, history of prostate cancer, history of cancer, left fifth toe amputation and hyperlipidemia who presented to the ED for evaluation of a right knee infection. History obtained from patient, at bedside and associated chart review. Patient seen with Dr. Bustos. Patient was seen and evaluated as an outpatient by [facility] on 05/28/2024 due to pain and swelling in his right knee. He underwent a right knee replacement performed by Dr. Mich Carnes approximately 4 years ago. Examination at that time showed a large right knee joint effusion, which was subsequently aspirated in the office. The fluid was very cloudy and suggestive of an acute infection, therefore was sent off for cultures. Patient was actually placed on the surgical schedule tomorrow (05/31/2024) for an open incision and drainage with a poly exchange of his right knee. Patient's preliminary right knee effusion culture is growing MSSA. Patient was also recently seen and evaluated by Dr. Edmond Drew at [facility] in [place] on 05/27/2024 due to a great right toe wound. He had the wound debrided at that appointment and was prescribed a course of Omnicef. Patient mentions that he started experiencing some swelling and pain in his right knee on Monday. This has gotten progressively worse to the point where he can barely bear any weight on his right lower extremity. He has been using a wa lker and also wheelchair at home to ambulate. He was instructed by the [facility] orthopedic office to come to the ED today as the culture from his joint aspiration was positive for bacterial growth. He had previously been taking Omnicef as per above. Denies any fevers, however his mentions he was dealing with some chills earlier in the week. No chest pain or SOB. Notices that his appetite has been decreased over the last few days. He has been experiencing some increased thirst and urination. Allergies Allergy/AdvReac Type Severity Reaction Status Date / Time tramadol AdvReac Intermediate Annabella Verified 05/30/24 10:02 "wacky" codeine AdvReac Mild Annabella Verified 05/30/24 10:02 "wacky" Home Medications Medication Instructions Recorded Confirmed Type enalapril maleate 10 mg tablet 10 mg PO QAM #90 tabs 04/19/19 05/30/24 History (Vasotec) metformin 500 mg tablet 1,000 mg PO BID #180 tabs 04/19/19 05/30/24 History ibuprofen 200 mg tablet 400 mg PO Q6H PRN Pain 09/23/19 05/30/24 History insulin degludec 100 unit/mL 51 unit subcut QAM 09/23/19 05/30/24 History subcutaneous solution (Tresiba U-100 Insulin) magnesium oxide 500 mg PO Q OTHER DAY PRN Other 09/23/19 05/30/24 History acetaminophen 325 mg tablet 650 mg PO QID PRN Fever Or Pain 05/17/21 05/30/24 History (Tylenol) gabapentin 100 mg capsule 100 - 200 mg PO HS PRN leg pain 05/17/21 05/30/24 History cefdinir 300 mg capsule 300 mg PO BID 05/30/24 05/30/24 History Past Med/Surg History Problem List Acute hyperglycemia (Acute) SELMA (acute kidney injury) (Acute) Leukocytosis (Acute) Septic joint (Acute) Right knee pain (Acute) Encounter for pre-operative examination Medical History Acute kidney injury Creatinine 2.7 on 05/29/24 preop labs in setting of septic joint/acute illness Knee effusion, right Morbid obesity Diabetic neuropathy B/L LE Osteoarthritis History of prostate cancer 2018- s/p XRT Diabetes mellitus, type 2 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 (possible localized XRT per previous records) No reported ROM limitations Hypertension Surgical History History of tooth extraction History of tonsillectomy Hx of LASIK History of total left knee replacement Left TKA (11/21/22): SAB at L3/4, 1 attempt + regional at [facility] History of total right knee replacement (~2019) History of surgical procedure on mouth Cancer removal from lip/mouth Hx of nasal polypectomy Hx of hernia repair History of amputation of toe x2 - left small toe, 2 "tips" right toes Family History Mother Family history of diabetes mellitus Other No family history of adverse response to anesthesia Social History Smoking Status: Former smoker Tobacco Type: Cigarettes and Smokeless Tobacco (Dip or Chew) Cigarettes Per Day: only at age 20; Second Hand Exposure: No; Do You Dip or Chew Tobacco: No (Quit 20 years ago); Hx Alcohol Use: No Hx Substance Use: No Preferred Language: Surinamese Communication Ability: Effective Linux Vmware Administrator Required: No Beliefs That Will Affect Care: None marital status: Current Living Situation: Spouse Current Living Situation Comment: with Other Information That Helps Us Care for You: No Feels Safe at Home: Yes Safety Concerns: Feels Safe At This Time Assistive Devices: Walker Review of Systems Review of Systems: At least ten systems reviewed and negative, except as noted in the HPI. Physical Exam Physical Exam: Please refer to Dr. Bustos's addendum for physical examination findings. Results & Data Results & Data Vital Signs (Past 12 Hours) Vital Signs Temp Pulse Pulse Resp BP BP BP 05/30/24 14:08 36.9 C 86 20 109/64 109/64 05/30/24 13:53 88 20 05/30/24 13:53 36.9 C 78 20 96/72 L 05/30/24 13:24 35.8 C L 104 H 22 121/72 Pulse Ox O2 Del Method 05/30/24 14:08 96 Room Air 05/30/24 13:53 96 Room Air 05/30/24 13:53 98 Room Air 05/30/24 13:24 92 Room Air Laboratory Results Short CBC 05/30/24 Range/Units 13:42 WBC 15.18 H (4.8-10.8) K/ul Hgb 11.7 L (14.0-18.0) g/dl Hct 33.8 L (42.0-52.0) % Plt Count 265 (130-400) K/uL BMP 05/30/24 13:42 Sodium 131 L Potassium 3.7 Chloride 98 Carbon Dioxide 23 BUN 43 H Creatinine 2.44 H Glucose 421 H* Calcium 8.7 Liver Function 05/30/24 Range/Units 13:42 Total Bilirubin 1.0 (0.2-1.0) mg/dl Direct Bilirubin 0.3 H (0-0.2) mg/dl AST 10 L (13-39) U/L ALT 13 (7-52) U/L Alkaline Phosphatase 132 H (34-104) U/L Albumin 3.1 L (3.4-5.0) gm/dl Urine 05/30/24 Range/Units 14:05 Urine Color Dark Yellow Urine Appearance Turbid A (Clear) Urine pH 5.5 (4.5-7.5) Ur Specific [place] 1.018 (1.000-1.030) Urine Protein 2+ H (Negative) Urine Glucose (UA) 2+ H (Negative) Diagnostic Findings Chest X-Ray 05/30/24 13:40 XR chest 1V portable CLINICAL HISTORY: Sepsis. COMPARISON STUDY: Chest CT August 02, 2021. Chest radiograph October 24, 2022. FINDINGS: Lung volumes are mildly diminished. Lungs are clear. There is no pneumothorax or pleural effusion. Mild cardiomegaly is unchanged. Mediastinal contours are normal. There is no evidence for pulmonary edema. IMPRESSION: No acute cardiopulmonary findings. No change in appearance of the c hest. ACT 112: Negative or not required by law. Electronically signed by: Daniel Fields M.D. 05/30/2024 3:09 PM Medications Administered Sodium Chloride (Nss) 1,000 mls @ 999 mls/hr IV .Q1H1M DORIS Stop: 05/30/24 15:45 Last Admin: 05/30/24 14:29 Dose: 999 mls/hr Documented By: GILMA Discontinued Medications Cefepime HCl (Maxipime 2000mg) 2,000 mg in 20 mls @ 5 mls/min IV NOW STA; Protocol Stop: 05/30/24 14:04 Last Admin: 05/30/24 14:29 Dose: 5 mls/min Documented By: GILMA Daptomycin 600 mg/ Syringe 12 mls @ 6 mls/min IV NOW STA; Protocol Stop: 05/30/24 14:02 Last Admin: 05/30/24 15:09 Dose: 6 mls/min Documented By: CLINTON Insulin Human Regular (Novolin-R Insulin Per Unit Charge) 10 units IV NOW STA Stop: 05/30/24 14:18 Last Admin: 05/30/24 14:36 Dose: 10 units Documented By: GILMA Co-signed By: CLINTON Potassium Chloride (Potassium Chloride Crtab 20 Meq Tabcr) 40 meq PO NOW STA Stop: 05/30/24 15:05 Last Admin: 05/30/24 15:15 Dose: 40 meq Documented By: LCD Code Status & VTE Plan Code Status FULL CODE VTE Prophylaxis Plan VTE Prophylaxis will be ordered: Yes Supervising Physician Co-Signing Physician Notes Patient is a 74-year-old male with history of diabetes mellitus, ELVA, prostate cancer and other medical problems presents with history of right knee pain associated with swelling, erythema and ambulatory dysfunction. He was evaluated by [facility] 2 days ago and had aspiration of the joint for right knee effusion and was scheduled for I&D on 05/31/2024. Patient's synovial fluid culture was growing MSSA. He was also evaluated by podiatry for right great toe plantar ulcer which was debrided recently. He was prescribed Omnicef which she is currently taking. Please review HPI for complete details of presentation. I personally reviewed blood work and imaging studies. Noted leukocytosis 15K, normocytic anemia hemoglobin 11.7, sodium 131, creatinine 2.4, BUN 43, glucose 421, alkaline phosphatase 132, troponin 48.7, procalcitonin 6.5. Chest x-ray showed no acute process. EKG showed nonspecific ST abnormality, incomplete right bundle branch block, PVCs. Physical Exam: Vitals signs as noted above General Appearance: Morbidly obese, no apparent distress Head: normocephalic, Atraumatic Eyes: normal inspection, EOMI Neck: supple, Trachea midline Respiratory/Chest: Decreased breath sounds, CTA, No accessory muscle use Cardiovascular: S1, S2, No murmur Abdomen/GI:Soft, Non tender, Bowel sounds present Extremities/Musculoskeletal:normal inspection, right knee swelling, erythema, tender, right great toe plantar ulcer, S/P R 1st, 2nd distal toe amputation, left fifth toe amputation Neurologic/Psych:AAOX3, grossly no focal neurological deficits Skin: normal color, warm Right knee septic joint SELMA Troponin elevation likely demand ischemia secondary to above Abnormal urinalysis PVCs Uncontrolled diabetes mellitus Hyponatremia in setting of hyperglycemia Synovial fluid cultures grew MSSA Agree with starting broad-spectrum antibiotics IV cefepime, Dapto Hold lisinopril, ibuprofen Blood cultures pending IV fluids Orthopedics consulted Pain control Update A1c Continue insulin while hospitalized, hold metformin N.p.o. after midnight for possible I&D tomorrow I personally interviewed and examined at bedside. Patient's care is coordinated with Alyse Plata PA-C. I have reviewed the advanced practitioner's documentation, and I agree with plan of care. Please refer to the documentation above for details of patient's presentation and for discussion of other issues. I spent a total [id number] coordinating, documenting, and providing care for this patient excluding time spent in the performance of separately billed services. (1) Septic joint Laterality: right Septic arthritis location: knee Septic arthritis organism: staphylococcal Qualified Code(s): M00.061 - Staphylococcal arthritis, right k kennethe
--- NOTE | 2024-05-30 15:35 | Electrocardiogram Report ---
Test Reason : Blood Pressure : */* mmHG Vent. Rate : 94 BPM Atrial Rate : 94 BPM P-R Int : 132 ms QRS Dur : 106 ms QT Int : 378 ms P-R-T Axes : 21 -31 8 degrees QTcB Int : 472 ms Sinus rhythm with frequent Premature ventricular complexes Left axis deviation Incomplete right bundle branch block Nonspecific ST abnormality Abnormal ECG When compared with ECG of 29-May-2024 07:56, No significant change was found Confirmed by Jose Eduardo Bonilla ([id number]) on 05/30/2024 3:34:41 PM Referred By: REFERRED SELF Confirmed By: Jose Eduardo Bonilla
[2024-05-30] MEDS ORDERED: NON-FORMULARY MEDICATION (Magnesium Oxide 500 mg Tablet) PO PRN (16:21)
[2024-05-30] MEDS ORDERED: DEXTROSE 50% 50 ML SYRINGE IV PRN (17:09)
[2024-05-30] MEDS ORDERED: PHARMACY GLYCEMIC MGMT CONSULT PRN (17:09)
[2024-05-30] MEDS ORDERED: POLYETHYLENE (MIRALAX) 17 GM PACK PO PRN (17:09)
[2024-05-30] MEDS ORDERED: CARBOHYDRATES FOR HYPOGLYCEMIA PO PRN (17:09)
[2024-05-30] MEDS ORDERED: GLUCOSE 40% GEL 15 GM TUBE PO PRN (17:09)
[2024-05-30] MEDS ORDERED: ACETAMINOPHEN 325 MG TAB PO PRN (17:09)
[2024-05-30] MEDS ORDERED: GLUCAGON FOR INJ 1 MG VIAL SQ PRN (17:09)
[2024-05-30] MEDS ORDERED: GLUCOSE 10 TAB/TUBE PO PRN (17:09)
[2024-05-30] MEDS: LACTATED RINGER'S 1,000 ML IV SCH (18:09)
[2024-05-30] MEDS: INSULIN ASPART PER UNIT CHARGE SC SCH (18:10)
[2024-05-30] MEDS: GABAPENTIN 100 MG CAP PO SCH (22:26)
[2024-05-31] MEDS: INSULIN ASPART PER UNIT CHARGE SC SCH (00:08)
[2024-05-31] MEDS: CEFEPIME 2000MG 2,000 MG/20 ML SYR IV SCH (02:20)
[2024-05-31] MEDS: ALUMINUM/MAGNESIUM/SIMETH (MAALOX MAX) 30 ML UDC PO STA (04:13)
--- OUTSIDE RECORDS SUMMARY | 2024-05-31 05:44 | External Medical Summary ---
Author Name Unknown Address Unknown Organization R1WR:[facility] [address] [place] [address] Laboratory Report Ordering Provider Test Date Status TERESE DEJESUS 05/27/2024 14:18:00 Final Observation Date Value Abnormality Reference (Units ) Status Specimen Description 05/27/2024 14:24 WOUND Final Special Requests 05/27/2024 14:24 None Final Culture 05/29/2024 09:42 No Anaerobes isolated Final Report Status 05/29/2024 09:42 Final Result 05/29/2024 Final Performing Location [facility] [address] [place] [address]
[2024-05-31 06:14] LABS: Hematocrit (blood only) 32.3 % (42.0-52.0); Hemoglobin 10.9 g/dl (14.0-18.0); Mean Corpuscular Hemoglobin 28.4 pg (25.0-34.0); Mean Corpuscular Hgb Conc 33.7 g/dL (32.0-36.0); Mean Corpuscular Volume 84.1 fL (80.0-100.0); Mean Platelet Volume 10.5 fL (9.4-12.4); Platelet Count 247 K/uL (130-400); RDW Coefficient of Variation 14.2 % (11.5-14.5); RDW Standard Deviation 43.5 fL (36.4-46.3); Red Blood Count 3.84 M/uL (4.70-6.10); White Blood Count 12.77 K/ul (4.8-10.8)
[2024-05-31 06:42] LABS: BUN Creatinine Ratio 19.1 (10-20); Calcium 8.4 mg/dl (8.6-10.3); Creatinine Clr Calc Pharmacy 46.6 ml/min; Magnesium 1.6 mg/dl (1.7-2.4); Phosphorus 1.7 mg/dl (2.5-4.9); Potassium 3.6 mmol/L (3.5-5.1)
[2024-05-31 07:09] LABS: Estimated Average Glucose 200 mg/dl; Hemoglobin A1C 8.6 % (4.5-5.6)
--- NOTE | 2024-05-31 08:31 | Hospitalist Progress Note ---
Date of Service May 31, 2024 Assessment & Plan (1) Septic joint: (2) Acute hyperglycemia: (3) SELMA (acute kidney injury): Plan Yeyo Bauer is a 74y/o M with PMHx significant for DM type II, diabetic polyneuropathy, HTN, morbid obesity, anemia, hypersomnia with sleep apnea, history of prostate cancer, history of cancer, left fifth toe amputation and hyperlipidemia who presented to the ED for evaluation of a right knee infection via referral from [facility] Patient is now POD 0 from right knee polyethylene exchange, I&D. #Septic Joint of Right Knee: #s/p R TKA now s/p I&D/polytethylene exchange 05/[address] Carnes -05/28 right knee effusion culture is growing MSSA. Continue cefepime and dapto for now intraop cultures obtained ID consult for abx regimen for d/c planning scheduled tylenol q8h oxycodone prn trend H&H for post op losses, transfuse <7 #Acute Kidney Injury (SELMA): Patient noted to have an SELMA with Cr of 2.7 on admission. likely iso infectious process/relative hypotension Downtrending Cr with good UOP Continue to trend and avoid nephrotoxic agents #Elevated Troponin, PVCs: likely demand iso infection Troponin 48.7 on presentation. EKG showed sinus rhythm with frequent PVCs. K+ 3.7 on admission, 40mEq oral KCL given in ED. Trend troponin Q6H. EKG with chest pain as needed. Cardiac monitoring in place. Continue to closely monitor electrolytes. #HTN: Home enalapril on hold for now given SELMA and relative hypotension #Chronic Anemia: Hgb 11.7 on admission, baseline Hgb ~12-13 per chart review. trend post op #Right Great Toe Ulceration: Patient was also recently seen and evaluated by Dr. Edmond Drew at [facility] in [place] on 05/27/2024 due to a great right toe wound. He had the wound debrided at that appointment and was prescribed a course of Omnicef. Wound care consult pending. #DM Type II #Acute Hyperglycemia: BSG 421 on presentation. S/p 10 units of Novolin-R insulin in the ED. BSG improved to 375 at 15:18 following insulin dose. Hold home agents, utilize SSI regimen while inpatient. CC diet, BSG checks ACHS. Most recent Hgb A1c was 8.4% on 05/29/2024. Glycemic pharmacy consulted for further recommendations. Other Chronic Medical Conditions: Diabetic polyneuropathy --> Can continue home gabapentin as previously scheduled. CPAP HS ordered for ELVA. DVT Prophylaxis: SCDs/TEDs for now pending surgical intervention tomorrow. Code Status: FULL CODE PCP: June Obregon DO Disposition: Admit to Med/Surg + Telemetry Admission and Anticipated Discharge Date Admission Date: May 30, 2024 Subjective evaluated prior to procedure reports right knee exquisitely painful Denies fevers or chills at this time denies chest pain palpitations sob or other acute concerns Physical Exam Constitutional: WD/WN, vitals as above Respiratory: normal respiratory effort, lungs clear to auscultation Cardiovascular: RRR, no murmur, no edema Results & Data Results & Data Vital Signs (Past 12 Hours) Vital Signs Temp Pulse Pulse Resp BP Pulse Ox O2 Del Method 05/31/24 08:09 36.8 C 105 H 18 143/74 H 91 Room Air 05/31/24 03:07 37.0 C 110 H 18 112/63 94 Room Air 05/31/24 01:01 Room Air 05/31/24 00:38 100 H 05/30/24 22:36 36.8 C 100 H 18 127/71 95 Room Air Laboratory Results Short CBC 05/31/24 Range/Units 05:38 WBC 12.77 H (4.8-10.8) K/ul Hgb 10.9 L (14.0-18.0) g/dl Hct 32.3 L (42.0-52.0) % Plt Count 247 (130-400) K/uL BMP 05/31/24 05:38 Sodium 135 L Potassium 3.6 Chloride 104 Carbon Dioxide 22 BUN 37 H Creatinine 1.94 H D Glucose 264 H Calcium 8.4 L Medications Administered Home Medications Medication Instructions Recorded Confirmed Last Taken enalapril maleate 10 mg tablet 10 mg PO QAM #90 tabs 04/19/19 05/30/24 05/30/24 (Vasotec) metformin 500 mg tablet 1,000 mg PO BID #180 tabs 04/19/19 05/30/24 05/30/24 ibuprofen 200 mg tablet 400 mg PO Q6H PRN Pain 09/23/19 05/30/24 11/20/22 14:00 insulin degludec 100 unit/mL 51 unit subcut QAM 09/23/19 05/30/24 05/30/24 subcutaneous solution (Tresiba U-100 Insulin) magnesium oxide 500 mg PO Q OTHER DAY PRN Other 09/23/19 05/30/24 10/13/19 acetaminophen 325 mg tablet 650 mg PO QID PRN Fever Or Pain 05/17/21 05/30/24 Unknown (Tylenol) gabapentin 100 mg capsule 100 - 200 mg PO HS PRN leg pain 05/17/21 05/30/24 11/20/22 20:00 cefdinir 300 mg capsule 300 mg PO BID 05/30/24 05/30/24 05/30/24 Active Medications Generic Name Dose Route Start Last Admin Trade Name Freq PRN Reason Stop Dose Admin Gabapentin 200 mg 05/30/24 21:00 05/30/24 22:26 Gabapentin 100 Mg Cap PO 06/29/24 20:59 200 mg HS DORIS Administration Lactated Ringer's 1,000 mls @ 15 mls/hr 05/30/24 17:09 05/31/24 12:04 Lr IV 06/01/24 05:38 0 mls/hr .Q24H DORIS Infusion Daptomycin 600 mg/ Syringe 12 mls @ 6 mls/min 05/31/24 15:00 05/31/24 15:47 IV 07/12/24 14:59 6 mls/min Q24H DORIS Administration Protocol Cefepime HCl 2,000 mg in 20 mls @ 5 mls/min 05/31/24 02:00 05/31/24 15:47 Maxipime 2000mg IV 07/12/24 01:59 5 mls/min Q12H DORIS Administration Protocol Insulin Aspart 0 units 05/31/24 00:00 05/31/24 12:19 Insulin Aspart Per Unit Charge SC 06/30/24 00:00 Not Given Q4 DORIS Insulin Glargine 40 units 05/31/24 09:00 05/31/24 11:18 Lantus Per Unit Charge SC 06/30/24 08:59 40 units DAILY DORIS Administration Ondansetron HCl 4 mg 05/30/24 17:09 05/31/24 11:28 Ondansetron Inj 2 Mg/Ml 2 Ml Vial IV 06/29/24 17:08 4 mg Q6H PRN Administration Nausea (1) Septic joint Laterality: right Septic arthritis location: knee Septic arthritis organism: staphylococcal Qualified Code(s): M00.061 - Staphylococcal arthritis, right knee
[2024-05-31] MEDS ORDERED: INFLUENZA VACC TS2024-25(65y+)/PF (IIV3) 0.5mL Syr IM ONE (09:00)
[2024-05-31] MEDS: LANTUS PER UNIT CHARGE SC SCH (11:18)
[2024-05-31] MEDS: ONDANSETRON INJ 2 MG/ML 2 ML VIAL IV PRN (11:28)
--- NOTE | 2024-05-31 12:08 | History & Physical Bridge Note ---
Date of Service May 31, 2024 History & Physical Bridge Note I have examined the patient, reviewed the History & Physical and in the interval since the performance of the History & Physical I have noted the following changes of clinical significance: no changes noted
--- OUTSIDE RECORDS SUMMARY | 2024-05-31 12:37 | External Medical Summary ---
Author Name Unknown Address Unknown Organization [id number]:[facility] [address] [place] [address] Laboratory Report Ordering Provider Test Date Status TERESE DEJESUS 05/27/2024 14:18:00 Final Observation Date Value Abnormality Reference (Units ) Status Specimen Description 05/29/2024 08:38 Wound R FOOT Final Special Requests 05/27/2024 14:24 None Final Gram Stain 05/28/2024 09:45 No Polys Seen Final 2+ Gram Positive Cocci Rare Gram Negative Rods Rare Gram Positive Rods Culture 05/28/2024 12:57 2+ Staphylococcus aureus Final 2+ Group B Streptococci (S. agalactiae) Report Status 05/30/2024 13:36 Final Result 05/30/2024 Final Organism 05/29/2024 08:38 2+ Staphylococcus aureus Final METHOD 05/29/2024 08:38 Microscan JR-ug/ml (MEIR) Final Clindamycin 05/29/2024 08:38 <=0.25 Sensitive Susceptible Final Daptomycin 05/29/2024 08:38 1 Sensitive Susceptible Final Gentamicin 05/29/2024 08:38 <=4 Sensitive Susceptible Final Oxacillin 05/29/2024 08:38 2 Sensitive Susceptible Final Vancomycin 05/29/2024 08:38 1 Sensitive Susceptible Final Tetracycline 05/29/2024 08:38 <=4 Sensitive Susceptible Final Sulfa/Trimethoprim 05/29/2024 08:38 <=0.5/9.5 Sensitive Susc eptible Final Organism 05/30/2024 13:36 2+ Group B Stre ptococci (S. agalactiae) Final METHOD 05/30/2024 13:36 Microscan JR-ug/ml (MEIR) Final Ampicillin 05/30/2024 13:36 0.12 Sensitive Susceptible Final Cefepime 05/30/2024 13:36 <=0.25 Sensitive Susceptible Final Cefotaxime 05/30/2024 13:36 <=0.25 Sensitive Susceptible Final Ceftriaxone 05/30/2024 13:36 <=0.25 Sensitive Susceptible Final Clindamycin 05/30/2024 13:36 <=0.06 Sensitive Susceptible Final Penicillin 05/30/2024 13:36 0.06 Sensitive Susceptible Final Vancomycin 05/30/2024 13:36 0.5 Sensitive Susceptible Final Performing Location [facility] [address] [place] [address]
[2024-05-31] MEDS ORDERED: ONDANSETRON INJ 2 MG/ML 2 ML VIAL IV PRN (12:43)
[2024-05-31] MEDS ORDERED: PROMETHAZINE HCL 6.25 MG in SODIUM CHLORIDE 0.9% 50 ML IV PRN (12:43)
[2024-05-31] MEDS ORDERED: HYDROmorphone INJ 1 MG/ML SYRINGE IV PRN (12:43)
[2024-05-31] MEDS ORDERED: fentaNYL citrate PF 100 MCG/2 ML VIAL IV PRN (12:43)
[2024-05-31] MEDS ORDERED: ePHEDrine sulfate 50 MG/ML AMP IV PRN (12:43)
[2024-05-31] MEDS: DAKIN'S SOLN 0.25% HALF STRENGTH 473ML BTL IR STA (13:48)
--- NOTE | 2024-05-31 14:40 | Pharmacy Report ---
Pharmacy Glycemic Short Note 2 - Date of Service May 31, 2024 - Glycemic Short BSG Results (Last 24 hours): 05/30/24 05/30/24 05/30/24 13:42 14:03 15:18 Glucose 421 H* POC Glucose 417 H* 375 H* 05/30/24 05/30/24 05/30/24 17:37 17:38 20:07 Glucose POC Glucose 308 H* 267 H 273 H 05/30/24 05/31/24 05/31/24 23:59 03:56 05:38 Glucose 264 H POC Glucose 236 H 242 H 05/31/24 05/31/24 05/31/24 08:40 12:23 12:54 Glucose POC Glucose 238 H 256 H 258 H OUTPATIENT ANTIDIABETIC REGIMEN: * Tresiba 51 units SQ QAM * Metformin 1000 mg BID A1C 05/29/24 is 8.3% ASSESSMENT: 05/31 * 74 year old male admitted for septic knee joint and SELMA. Type 2 diabetic managed on metformin 1000mg BID outpatient. * Pharmacy consulted for glycemic management. Pt injected his tresiba before coming to the hospital but BSGs remained high on admission. While at hospital ED, patient received 10 units of IV regular insulin to correct hyperglycemia. Pt was placed on Q4H checks. Pt also received 31 more units of aspart throughout the night. * Pt received 40 units of glargine this AM and 7 units of correctional aspart around 1100 before heading to the OR for knee debridement. PLAN FOR INPATIENT GLYCEMIC CONTROL: * Hold outpatient oral diabetes medications * Basal insulin * Lantus 40 units SQ * Bolus insulin * NovoLog per scale ACHS or Q4hrs while NPO * Goal Range: Low 110 mg/dL - High 140 mg/dL * Correction Factor: 15 mg/dL/unit * Nutritional / Prandial insulin per carb ratio of 1 unit per 6 grams CHO consumed
--- NOTE | 2024-05-31 14:53 | Electrocardiogram Report ---
Test Reason : Blood Pressure : */* mmHG Vent. Rate : 106 BPM Atrial Rate : 106 BPM P-R Int : 162 ms QRS Dur : 106 ms QT Int : 358 ms P-R-T Axes : 54 -32 30 degrees QTcB Int : 475 ms Sinus tachycardia with occasional Premature ventricular complexes Left axis deviation Incomplete right bundle branch block Nonspecific ST abnormality Abnormal ECG When compared with ECG of 30-May-2024 13:50, No significant change was found Confirmed by Jose Eduardo Bonilla ([id number]) on 05/31/2024 2:53:03 PM Referred By: REFERRED SELF Confirmed By: Jose Eduardo Bonilla
--- NOTE | 2024-05-31 15:03 | Operative Report ---
PG Post Operative Report Pre & Post Diagnosis Operation Date: 05/31/24 13:00 Pre-Op Diagnosis: Septic Right Total Knee Post-Op Diagnosis: Septic Right Total Knee I identified the patient and participated in the time-out.: Yes Procedure Operation Date: 05/31/24 13:00 Actual Procedures p Right Knee Polyethylene Exchange, Irrigation and Debridement(Right) - Mich Carnes DO Surgeon Mich Carnes DO Train Controller Mich Stokes PA-C Estimated Blood Loss 30 Findings Consistent with Post-Op Diagnosis Specimens Cultures x 2 Description of Procedure On May 31, 2024 Yeyo was brought down from his hospital bed to the preoperative holding area. The operative extremity identified and signed. He was taken back the operating room put under general anesthesia. The right leg was then prepped and draped sterile fashion. A timeout was done. The patient and the operative extremity was properly identified. The previous midline incision was opened back up. Dissection was taken down through the fascia. A medial parapatellar arthrotomy was used. As soon as the arthrotomy was made, a large amount of purulent discharge came out of the knee joint. This fluid was cultured. The medial retinaculum was released. The knee was flexed and the polyethylene insert was removed. Time was spent removing the synovium and removing any infected appearing tissue. Significant time was spent on the debridement. Once the knee was adequately debrided the knee was then irrigated with 3 L of normal saline solution by pulse lavage. A 3-minute Betadine lavage was then done. The implants were then scrubbed vigorously with a Betadine scrub brush. Another 3 L of normal saline solution were then irrigated through the joint. A 3-minute Dakin solution lavage was then done. After that the implants were scrubbed vigorously with a Betadine scrub brush. An additional 3 L of normal saline solution were irrigated through the joint. After that, the cautery and suction tips were then changed. All gloves were changed. An additional draping was placed. A new size 12 mm polyethylene implant was then snapped into place. The anterior bar was locked. The knee was brought through full range of motion and felt to be stable. A single Hemovac drain was placed. The extensor mechanism was closed with #1 Vicryl. Skin was closed with 2-0 Vicryl and laurence. He was then placed in a soft compressive dressing. He was then extubated and transferred to a hospital bed. He was taken to the postanesthesia care unit in stable condition. He tolerated the procedure well. Mich Stokes PA-C, was present for the entire procedure. He was critical for patient positioning, prepping, draping, retraction exposure, wound closure and application of sterile dressing. I attest to the content of the Intraoperative Record and any orders documented therein. Any exceptions are noted below.
--- NOTE | 2024-05-31 15:14 | Anesthesiology Progress Note ---
Date of Service May 31, 2024 Anesthesia Post Procedure Vital Signs Vital Signs: Temp Pulse Pulse Pulse Resp BP BP 05/31/24 15:10 36.6 C 85 20 119/77 05/31/24 15:00 94 H 20 125/75 05/31/24 14:50 94 H 22 135/66 05/31/24 14:40 99 H 20 92/57 L 05/31/24 14:30 37.2 C 99 H 20 124/58 L 05/31/24 11:57 37 C 109 H 17 146/73 H 05/31/24 11:48 37.1 C 99 H 18 136/84 05/31/24 09:00 05/31/24 08:09 36.8 C 105 H 18 143/74 H 05/31/24 08:00 108 H 05/31/24 03:07 37.0 C 110 H 18 112/63 05/31/24 01:01 05/31/24 00:38 100 H 05/30/24 22:36 36.8 C 100 H 18 127/71 05/30/24 19:31 36.7 C 100 H 150/74 H 05/30/24 17:23 36.6 C 97 H 19 163/60 H 05/30/24 17:14 96 H 05/30/24 16:00 72 18 125/73 Pulse Ox O2 Del Method O2 Flow Rate 05/31/24 15:10 95 Nasal Cannula 4 05/31/24 15:00 96 Nasal Cannula 4 05/31/24 14:50 92 Nasal Cannula 4 05/31/24 14:40 92 Nasal Cannula 4 05/31/24 14:30 92 Oxymask 05/31/24 11:57 94 Room Air 05/31/24 11:48 93 Room Air 05/31/24 09:00 Room Air 05/31/24 08:09 91 Room Air 05/31/24 08:00 05/31/24 03:07 94 Room Air 05/31/24 01:01 Room Air 05/31/24 00:38 05/30/24 22:36 95 Room Air 05/30/24 19:31 97 Room Air 05/30/24 17:23 98 Room Air 05/30/24 17:14 05/30/24 16:00 Pain Intensity Right Knee: Pain Intensity: 5 Transfer of Care Handoff Completed per policy Notes Mental Status: alert / awake / arousable and participated in evaluation Patient Amnestic to Procedure: Yes Nausea / Vomiting: adequately controlled Pain: adequately controlled Airway Patency, RR, SpO2: stable & adequate BP & HR: stable & adequate Hydration State: stable & adequate Anesthetic Complications: no major complications apparent and Pt Satisfied with anesthetic care
[2024-05-31] MEDS: DAPTOmycin 600 MG in SYRINGE 0 ML IV SCH (15:47)
[2024-05-31] MEDS: ACETAMINOPHEN 500 MG TAB PO SCH (21:12)
[2024-06-01] MEDS ORDERED: INSULIN ASPART PER UNIT CHARGE SC SCH
[2024-06-01] MEDS: CALCIUM CARBONATE 500 MG CHEWABLE TAB PO PRN (00:52)
--- NOTE | 2024-06-01 07:05 | Orthopedic Progress Note ---
Date of Service June 01, 2024 Assessment & Plan (1) Status post knee surgery: Overall he seems to be doing fairly well. He is not having too much pain in the right knee. He is on cefepime and daptomycin. The cultures from the knee aspirate on Monday grew out pansensitive MSSA. He can be weightbearing as tolerated on his right knee. He will be seen by physical therapy today for ambulation and range of motion exercises. He will likely need infectious disease consultation, a PICC line, and 6 weeks of IV antibiotics. Inder Orona was seen and examined at bedside this morning. Overall he is doing fairly well. His knee pain is significantly improved. He is currently on cefepime and daptomycin. He has no complaints.. Review of Systems All systems reviewed & are unremarkable except as noted in HPI & below. Physical Exam On physical examination of the right knee, the dressing is clean and dry. The Hemovac is to suction. He has active dorsiflexion plantarflexion of his right ankle.. Results & Data Results & Data Laboratory Results . Diagnostic Findings . PG Care Time/CCT Total # of Minutes Spent Total Time Spent with Patient: Total time spent is greater than 50% in coordination of care (as documented) at patient's floor/unit and/or counseling patient: Coding Level of Care Code 93631 Post Operative Follow-Up Diagnoses Status post knee surgery Z98.890
[2024-06-01 07:27] LABS: Hematocrit (blood only) 31.6 % (42.0-52.0); Hemoglobin 10.5 g/dl (14.0-18.0); Mean Corpuscular Hemoglobin 28.5 pg (25.0-34.0); Mean Corpuscular Hgb Conc 33.2 g/dL (32.0-36.0); Mean Corpuscular Volume 85.9 fL (80.0-100.0); Platelet Count 265 K/uL (130-400); RDW Coefficient of Variation 14.6 % (11.5-14.5); RDW Standard Deviation 45.4 fL (36.4-46.3); Red Blood Count 3.68 M/uL (4.70-6.10); White Blood Count 13.18 K/ul (4.8-10.8)
[2024-06-01 07:52] LABS: BUN Creatinine Ratio 23.2 (10-20); Calcium 8.4 mg/dl (8.6-10.3); Creatinine Clr Calc Pharmacy 63.6 ml/min; Magnesium 1.8 mg/dl (1.7-2.4); Phosphorus 2.3 mg/dl (2.5-4.9)
--- NOTE | 2024-06-01 08:12 | Hospitalist Progress Note ---
Date of Service June 01, 2024 Assessment & Plan (1) Septic joint: (2) Acute hyperglycemia: (3) SELMA (acute kidney injury): Plan Yeyo Bauer is a 74y/o M with PMHx significant for DM type II, diabetic polyneuropathy, HTN, morbid obesity, anemia, hypersomnia with sleep apnea, history of prostate cancer, history of cancer, left fifth toe amputation and hyperlipidemia who presented to the ED for evaluation of a right knee infection via referral from [facility] Patient is now POD 1 from right knee polyethylene exchange, I&D. #Septic Joint of Right Knee: #s/p R TKA now s/p I&D/polytethylene exchange 05/[address] Carnes -05/28 right knee effusion culture is growing MSSA. intraop cultures obtained, minimal growth given on abx ID consult for abx regimen for d/c planning -Will transition to cefazolin q8h and await final recs scheduled tylenol q8h oxycodone prn #Acute on chronic blood loss anemia 2/2 post op trend H&H, transfuse <7 baseline 11-12, 10.5 s/p operation drain in place with sanguineous output CBC in am #Acute Kidney Injury (SELMA): Patient noted to have an SELMA with Cr of 2.7 on admission. likely iso infectious process/relative hypotension Downtrending Cr with good UOP Continue to trend and avoid nephrotoxic agents #Elevated Troponin, PVCs: resolved likely demand iso infection Troponin 48.7 on presentation. EKG showed sinus rhythm with frequent PVCs. K+ 3.7 on admission, 40mEq oral KCL given in ED. Trend troponin Q6H. EKG with chest pain as needed. Cardiac monitoring in place. Continue to closely monitor electrolytes. #HTN: Home enalapril on hold for now given SELMA and relative hypotension #Chronic Anemia: Hgb 11.7 on admission, baseline Hgb ~12-13 per chart review. trend post op #Right Great Toe Ulceration: Patient was also recently seen and evaluated by Dr. Edmond Drew at [facility] in [place] on 05/27/2024 due to a great right toe wound. He had the wound debrided at that appointment and was prescribed a course of Omnicef. Wound care consult pending. likely source of infection #DM Type II #Acute Hyperglycemia: BSG 421 on presentation. S/p 10 units of Novolin-R insulin in the ED. BSG improved to 375 at 15:18 following insulin dose. Hold home agents, utilize SSI regimen while inpatient. CC diet, BSG checks ACHS. Most recent Hgb A1c was 8.4% on 05/29/2024. Glycemic pharmacy consulted for further recommendations. Other Chronic Medical Conditions: Diabetic polyneuropathy --> Can continue home gabapentin as previously scheduled. CPAP HS ordered for ELVA. DVT Prophylaxis: SCDs/TEDs for now pending surgical intervention tomorrow. Code Status: FULL CODE PCP: June Obregon DO Disposition: Admit to Med/Surg + Telemetry Admission and Anticipated Discharge Date Admission Date: May 30, 2024 Subjective Evaluated in bedside chair, s/p PT Patient states he is doing much better and the "pain" he feels now is more related to exercise/movement than what he felt prior to surgery Patient states he feels fairly good and understands possible need for rehab g iven the IVF abx at bedside--she is unsure if she can facilitate frequent IV help given she works Physical Exam Constitutional: WD/WN, vitals as above Respiratory: normal respiratory effort, lungs clear to auscultation Cardiovascular: RRR, no murmur, no edema Musculoskeletal: right knee with geo wrapping and drain in place Skin: close wound on bottom right great toe, no drainage noted Results & Data Results & Data Vital Signs (Past 12 Hours) Vital Signs Temp Pulse Pulse Resp BP Pulse Ox O2 Del Method 06/01/24 07:52 36.3 C L 74 20 93/54 L 98 Room Air 06/01/24 03:45 36.8 C 73 18 110/68 96 Room Air 06/01/24 01:00 91 H 05/31/24 23:24 Room Air 05/31/24 23:21 36.6 C 76 20 120/64 98 Room Air Laboratory Results Short CBC 06/01/24 Range/Units 06:57 WBC 13.18 H (4.8-10.8) K/ul Hgb 10.5 L (14.0-18.0) g/dl Hct 31.6 L (42.0-52.0) % Plt Count 265 (130-400) K/uL BMP 06/01/24 06:57 Sodium 138 Potassium 4.0 Chloride 105 Carbon Dioxide 25 BUN 33 H Creatinine 1.42 H D Glucose 191 H Calcium 8.4 L Medications Administered Home Medications Medication Instructions Recorded Confirmed Last Taken enalapril maleate 10 mg tablet 10 mg PO QAM #90 tabs 04/19/19 05/30/24 05/30/24 (Vasotec) metformin 500 mg tablet 1,000 mg PO BID #180 tabs 04/19/19 05/30/24 05/30/24 ibuprofen 200 mg tablet 400 mg PO Q6H PRN Pain 09/23/19 05/30/24 11/20/22 14:00 insulin degludec 100 unit/mL 51 unit subcut QAM 09/23/19 05/30/24 05/30/24 subcutaneous solution (Tresiba U-100 Insulin) magnesium oxide 500 mg PO Q OTHER DAY PRN Other 09/23/19 05/30/24 10/13/19 acetaminophen 325 mg tablet 650 mg PO QID PRN Fever Or Pain 05/17/21 05/30/24 Unknown (Tylenol) gabapentin 100 mg capsule 100 - 200 mg PO HS PRN leg pain 05/17/21 05/30/24 11/20/22 20:00 cefdinir 300 mg capsule 300 mg PO BID 05/30/24 05/30/24 05/30/24 Active Medications Generic Name Dose Route Start Last Admin Trade Name Freq PRN Reason Stop Dose Admin Acetaminophen 1,000 mg 05/31/24 22:00 06/01/24 06:29 Acetaminophen 500 Mg Tab PO 06/30/24 21:59 1,000 mg Q8H DORIS Administration Calcium Carbonate 500 mg 06/01/24 00:47 06/01/24 00:52 Calcium Carbonate 500 Mg Chewable Tab PO 07/01/24 00:46 500 mg BID PRN Administration Heartburn Gabapentin 200 mg 05/30/24 21:00 05/31/24 21:12 Gabapentin 100 Mg Cap PO 06/29/24 20:59 200 mg HS DORIS Administration Daptomycin 600 mg/ Syringe 12 mls @ 6 mls/min 05/31/24 15:00 05/31/24 15:47 IV 07/12/24 14:59 6 mls/min Q24H DORIS Administration Protocol Cefepime HCl 2,000 mg in 20 mls @ 5 mls/min 05/31/24 02:00 06/01/24 03:59 Maxipime 2000mg IV 07/12/24 01:59 5 mls/min Q12H DORIS Administration Protocol Insulin Glargine 40 units 05/31/24 09:00 05/31/24 11:18 Lantus Per Unit Charge SC 06/30/24 08:59 40 units DAILY DORIS Administration Ondansetron HCl 4 mg 05/30/24 17:09 05/31/24 11:28 Ondansetron Inj 2 Mg/Ml 2 Ml Vial IV 06/29/24 17:08 4 mg Q6H PRN Administration Nausea (1) Septic joint Laterality: right Septic arthritis location: knee Septic arthritis organism: staphylococcal Qualified Code(s): M00.061 - Staphylococcal arthritis, right knee
[2024-06-01] MEDS: POT PHOSPHATE MONOBASIC W/ SOD TAB PO SCH (08:43)
[2024-06-01] MEDS: ASPIRIN 81 MG ECTAB PO SCH (08:43)
[2024-06-01] MEDS: ceFAZolin 2000MG 2,000 MG/15 ML SYR IV SCH (09:38)
[2024-06-01] MEDS: INSULIN ASPART PER UNIT CHARGE SC SCH (09:46)
[2024-06-01] MEDS: LANTUS PER UNIT CHARGE SC SCH ×2 (09:47→20:13)
[2024-06-01] MEDS: oxyCODONE/ACETAMINOPHEN 5mg/325mg TAB PO PRN (10:01)
--- NOTE | 2024-06-01 13:22 | Pharmacy Report ---
Pharmacy Glycemic Short Note 2 - Date of Service June 01, 2024 - Glycemic Short BSG Results (Last 24 hours): 05/31/24 05/31/24 05/31/24 14:37 15:46 20:04 Glucose POC Glucose 215 H 244 H 308 H* 05/31/24 05/31/24 05/31/24 20:07 23:15 23:17 Glucose POC Glucose 353 H* 301 H* 291 H 06/01/24 06/01/24 06/01/24 03:48 06:57 08:07 Glucose 191 H POC Glucose 292 H 219 H 06/01/24 06/01/24 12:17 12:19 Glucose POC Glucose 314 H* 277 H OUTPATIENT ANTIDIABETIC REGIMEN: * Tresiba 51 units SQ QAM * Metformin 1000 mg BID A1C 05/29/24 is 8.3% ASSESSMENT: 06/01/24: * Blood sugars elevated yesterday (ranging 238-353 mg/dL) * Received 98 units of insulin (40 units of which were basal) * Blood sugars remain elevated today. Will tighten carb ratio and increase basal today. 05/31 * 74 year old male admitted for septic knee joint and SELMA. Type 2 diabetic managed on metformin 1000mg BID outpatient. * Pharmacy consulted for glycemic management. Pt injected his tresiba before coming to the hospital but BSGs remained high on admission. While at hospital ED, patient received 10 units of IV regular insulin to correct hyperglycemia. Pt was placed on Q4H checks. Pt also received 31 more units of aspart throughout the night. * Pt received 40 units of glargine this AM and 7 units of correctional aspart around 1100 before heading to the OR for knee debridement. PLAN FOR INPATIENT GLYCEMIC CONTROL: * Hold outpatient oral diabetes medications * Basal insulin - increase basal to allow for dose equivalent to weight-based stress of 3 dosing * Lantus 50 units SC daily * Lantus 0-10-15 units SC HS (see EHR for details) * Bolus insulin * NovoLog per scale ACHS or q6h while NPO * Goal Range: Low 110 mg/dL - High 140 mg/dL * Correction Factor: 10 mg/dL/unit * Nutritional / Prandial insulin per carb ratio of 1 unit per 3 grams CHO consumed
[2024-06-02] MEDS: INSULIN ASPART PER UNIT CHARGE SC SCH (00:08)
[2024-06-02 06:39] LABS: Hematocrit (blood only) 32.5 % (42.0-52.0); Hemoglobin 10.5 g/dl (14.0-18.0); Mean Corpuscular Hgb Conc 32.3 g/dL (32.0-36.0); Mean Corpuscular Volume 86.7 fL (80.0-100.0); Platelet Count 309 K/uL (130-400); RDW Coefficient of Variation 14.7 % (11.5-14.5); RDW Standard Deviation 47.2 fL (36.4-46.3); Red Blood Count 3.75 M/uL (4.70-6.10); White Blood Count 13.17 K/ul (4.8-10.8)
[2024-06-02 06:46] LABS: BUN Creatinine Ratio 28.1 (10-20); Calcium 8.3 mg/dl (8.6-10.3); Creatinine Clr Calc Pharmacy 70.7 ml/min; Magnesium 1.6 mg/dl (1.7-2.4); Phosphorus 3.7 mg/dl (2.5-4.9); Potassium 3.7 mmol/L (3.5-5.1)
[2024-06-02] MEDS: MAGNESIUM SULFATE / D5W 1 GM/100 ML BAG IV SCH (07:38)
[2024-06-02] MEDS: LANTUS PER UNIT CHARGE SC SCH (09:08)
[2024-06-02] MEDS: MAGNESIUM HYDROXIDE SUSP 30 ML UDC PO ONE (09:09)
--- NOTE | 2024-06-02 12:23 | Hospitalist Progress Note ---
Date of Service June 02, 2024 Assessment & Plan (1) Septic joint: (2) Acute hyperglycemia: (3) SELMA (acute kidney injury): Plan Yeyo Bauer is a 74y/o M with PMHx significant for DM type II, diabetic polyneuropathy, HTN, morbid obesity, anemia, hypersomnia with sleep apnea, history of prostate cancer, history of cancer, left fifth toe amputation and hyperlipidemia who presented to the ED for evaluation of a right knee infection [facility] Patient is now POD 1 from right knee polyethylene exchange, I&D. #Septic Joint of Right Knee: #s/p R TKA now s/p I&D/polytethylene exchange 05/[address] Carnes -05/28 right knee effusion culture is growing MSSA. intraop cultures obtained, minimal growth given on abx ID consult for abx regimen for d/c planning -Will transition to cefazolin q8h and await final recs scheduled tylenol q8h oxycodone prn #Acute on chronic blood loss anemia 2/2 post op trend H&H, transfuse <7 baseline 11-12, 10.5 s/p operation drain in place with sanguineous output CBC in am #Acute Kidney Injury (SELMA): resolving Patient noted to have an SELMA with Cr of 2.7 on admission. likely iso infectious process/relative hypotension Downtrending Cr with good UOP Continue to trend and avoid nephrotoxic agents #Elevated Troponin, PVCs: resolved likely demand iso infection Troponin 48.7 on presentation. EKG showed sinus rhythm with frequent PVCs. K+ 3.7 on admission, 40mEq oral KCL given in ED. Trend troponin Q6H. EKG with chest pain as needed. Cardiac monitoring in place. Continue to closely monitor electrolytes. #HTN: Home enalapril on hold for now given SELMA and relative hypotension #Chronic Anemia: Hgb 11.7 on admission, baseline Hgb ~12-13 per chart review. trend post op #Right Great Toe Ulceration: Patient was also recently seen and evaluated by Dr. Edmond Drew at [facility] in [place] on 05/27/2024 due to a great right toe wound. He had the wound debrided at that appointment and was prescribed a course of Omnicef. Wound care consult pending. likely source of infection #DM Type II #Acute Hyperglycemia: BSG 421 on presentation. S/p 10 units of Novolin-R insulin in the ED. BSG improved to 375 at 15:18 following insulin dose. Hold home agents, utilize SSI regimen while inpatient. CC diet, BSG checks ACHS. Most recent Hgb A1c was 8.4% on 05/29/2024. Glycemic pharmacy consulted for further recommendations. Other Chronic Medical Conditions: Diabetic polyneuropathy --> Can continue home gabapentin as previously scheduled. CPAP HS ordered for ELVA. DVT Prophylaxis: SCDs/TEDs for now pending surgical intervention tomorrow. Code Status: FULL CODE PCP: June Obregon, Disposition: Admit to Med/Surg + Telemetry Admission and Anticipated Discharge Date Admission Date: May 30, 2024 Subjective Reports feeling much better States he will not go to rehab and requests home abx noting that he has family who will "figure it out" discussed needing to solidify discharge plan prior to leaving Physical Exam Constitutional: WD/WN, vitals as above Respiratory: normal respiratory effort, lungs clear to auscultation Cardiovascular: RRR, no murmur, no edema Musculoskeletal: bandage CDI RLE Results & Data Results & Data Vital Signs (Past 12 Hours) Vital Signs Temp Pulse Pulse Resp BP Pulse Ox O2 Del Method 06/02/24 11:17 36.4 C L 76 20 116/76 96 Room Air 06/02/24 10:14 Room Air 06/02/24 08:01 36.5 C 71 20 139/76 96 Room Air 06/02/24 07:12 82 06/02/24 03:47 36.3 C L 92 H 18 137/84 94 Room Air Laboratory Results Short CBC 06/02/24 Range/Units 05:48 WBC 13.17 H (4.8-10.8) K/ul Hgb 10.5 L (14.0-18.0) g/dl Hct 32.5 L (42.0-52.0) % Plt Count 309 (130-400) K/uL BMP 06/02/24 05:48 Sodium 138 Potassium 3.7 Chloride 106 Carbon Dioxide 25 BUN 36 H Creatinine 1.28 Glucose 137 H Calcium 8.3 L Medications Administered Home Medications Medication Instructions Recorded Confirmed Last Taken enalapril maleate 10 mg tablet 10 mg PO QAM #90 tabs 08/05/30/24 05/30/24 (Vasotec) metformin 500 mg tablet 1,000 mg PO BID #180 tabs 04/19/19 05/30/24 05/30/24 ibuprofen 200 mg tablet 400 mg PO Q6H PRN Pain 09/23/19 05/30/24 11/20/22 14:00 insulin degludec 100 unit/mL 51 unit subcut QAM 09/23/19 05/30/24 05/30/24 subcutaneous solution (Tresiba U-100 Insulin) magnesium oxide 500 mg PO Q OTHER DAY PRN Other 09/23/19 05/30/24 10/13/19 acetaminophen 325 mg tablet 650 mg PO QID PRN Fever Or Pain 05/17/21 05/30/24 Unknown (Tylenol) gabapentin 100 mg capsule 100 - 200 mg PO HS PRN leg pain 05/17/21 05/30/24 11/20/22 20:00 cefdinir 300 mg capsule 300 mg PO BID 05/30/24 05/30/24 05/30/24 Active Medications Generic Name Dose Route Start Last Admin Trade Name Freq PRN Reason Stop Dose Admin Acetaminophen 1,000 mg 05/31/24 22:00 06/02/24 06:41 Acetaminophen 500 Mg Tab PO 06/30/24 21:59 1,000 mg Q8H DORIS Administration Aspirin 81 mg 06/01/24 09:00 06/02/24 08:31 Aspirin 81 Mg Ectab PO 07/01/24 08:59 81 mg BID DORIS Administration Gabapentin 200 mg 05/30/24 21:00 06/01/24 21:50 Gabapentin 100 Mg Cap PO 06/29/24 20:59 200 mg HS DORIS Administration Cefazolin Sodium 2,000 mg in 15 mls @ 3.75 mls/min 06/01/24 09:00 06/02/24 09:08 Ancef 2000mg IV 07/13/24 08:59 3.75 mls/min Q8H DORIS Administration Insulin Aspart 0 units 06/01/24 07:30 06/02/24 08:35 Insulin Aspart Per Unit Charge SC 07/01/24 07:29 Not Given ACHS DORIS Insulin Glargine 40 units 06/02/24 09:00 06/02/24 09:08 Lantus Per Unit Charge SC 06/30/24 08:59 40 units DAILY DORIS Administration Ondansetron HCl 4 mg 05/30/24 17:09 05/31/24 11:28 Ondansetron Inj 2 Mg/Ml 2 Ml Vial IV 06/29/24 17:08 4 mg Q6H PRN Administration Nausea Oxycodone/Acetaminophen 1 tab 05/30/24 17:09 06/01/24 10:01 Oxycodone/Acetaminophen 5mg/325mg Tab PO 06/13/24 17:08 1 tab Q4H PRN Administration Mod-Sev Pain (Scale 4-10) (1) Septic joint Laterality: right Septic arthritis location: knee Septic arthritis organism: staphylococcal Qualified Code(s): M00.061 - Staphylococcal arthritis, right knee
[2024-06-02] MEDS: CALCIUM CARBONATE 500 MG CHEWABLE TAB PO PRN (21:50)
[2024-06-03 06:09] LABS: Hemoglobin 10.2 g/dl (14.0-18.0); Mean Corpuscular Hemoglobin 27.4 pg (25.0-34.0); Mean Corpuscular Hgb Conc 31.9 g/dL (32.0-36.0); Mean Platelet Volume 9.5 fL (9.4-12.4); Platelet Count 304 K/uL (130-400); RDW Coefficient of Variation 14.8 % (11.5-14.5); RDW Standard Deviation 46.8 fL (36.4-46.3); Red Blood Count 3.72 M/uL (4.70-6.10); White Blood Count 10.41 K/ul (4.8-10.8)
[2024-06-03 06:19] LABS: BUN Creatinine Ratio 22.4 (10-20); Calcium 8.1 mg/dl (8.6-10.3); Creatinine Clr Calc Pharmacy 84.6 ml/min; Magnesium 1.7 mg/dl (1.7-2.4); Potassium 3.8 mmol/L (3.5-5.1)
--- NOTE | 2024-06-03 12:33 | Pharmacy Report ---
Pharmacy Glycemic Short Note 2 - Date of Service June 03, 2024 - Glycemic Short BSG Results (Last 24 hours): 06/02/24 06/02/24 06/03/24 17:05 20:08 05:37 Glucose 108 H POC Glucose 144 H 79 06/03/24 06/03/24 08:21 12:12 Glucose POC Glucose 127 H 143 H OUTPATIENT ANTIDIABETIC REGIMEN: * Tresiba 51 units SQ QAM * Metformin 1000 mg BID A1C 05/29/24 is 8.3% ASSESSMENT: 06/03: * Yeyo received 69 units of insulin yesterday (40 were basal) * Fasting BSG this AM within goal range, continue current basal insulin * BSGs downtrending throughout the day, Novolog parameters significantly loo sened yesterday, will continue 06/01/24: * Blood sugars elevated yesterday (ranging 238-353 mg/dL) * Received 98 units of insulin (40 units of which were basal) * Blood sugars remain elevated today. Will tighten carb ratio and increase basal today. 05/31 * 74 year old male admitted for septic knee joint and SELMA. Type 2 diabetic managed on metformin 1000mg BID outpatient. * Pharmacy consulted for glycemic management. Pt injected his tresiba before coming to the hospital but BSGs remained high on admission. While at hospital ED, patient received 10 units of IV regular insulin to correct hyperglycemia. Pt was placed on Q4H checks. Pt also received 31 more units of aspart throughout the night. * Pt received 40 units of glargine this AM and 7 units of correctional aspart around 1100 before heading to the OR for knee debridement. PLAN FOR INPATIENT GLYCEMIC CONTROL: * Hold outpatient oral diabetes medications * Basal insulin * Lantus 40 units SC daily * Bolus insulin * NovoLog per scale ACHS or q6h while NPO * Goal Range: Low 110 mg/dL - High 140 mg/dL * Correction Factor: 15 mg/dL/unit * Nutritional / Prandial insulin per carb ratio of 1 unit per 6 grams CHO consumed
--- NOTE | 2024-06-03 12:53 | Pharmacy Report ---
Pharmacy Glycemic Short Note 2 - Date of Service June 03, 2024 - Glycemic Short BSG Results (Last 24 hours): 06/02/24 06/02/24 06/03/24 17:05 20:08 05:37 Glucose 108 H POC Glucose 144 H 79 06/03/24 06/03/24 08:21 12:12 Glucose POC Glucose 127 H 143 H OUTPATIENT ANTIDIABETIC REGIMEN: * Tresiba 51 units SQ QAM * Metformin 1000 mg BID A1C 05/29/24 is 8.3% ASSESSMENT: 06/01/24: * Blood sugars elevated yesterday (ranging 238-353 mg/dL) * Received 98 units of insulin (40 units of which were basal) * Blood sugars remain elevated today. Will tighten carb ratio and increase basal today. 05/31 * 74 year old male admitted for septic knee joint and SELMA. Type 2 diabetic managed on metformin 1000mg BID outpatient. * Pharmacy consulted for glycemic management. Pt injected his tresiba before coming to the hospital but BSGs remained high on admission. While at hospital ED, patient received 10 units of IV regular insulin to correct hyperglycemia. Pt was placed on Q4H checks. Pt also received 31 more units of aspart throughout the night. * Pt received 40 units of glargine this AM and 7 units of correctional aspart around 1100 before heading to the OR for knee debridement. PLAN FOR INPATIENT GLYCEMIC CONTROL: * Hold outpatient oral diabetes medications * Basal insulin - increase basal to allow for dose equivalent to weight-based stress of 3 dosing * Lantus 50 units SC daily * Lantus 0-10-15 units SC HS (see EHR for details) * Bolus insulin * NovoLog per scale ACHS or q6h while NPO * Goal Range: Low 110 mg/dL - High 140 mg/dL * Correction Factor: 10 mg/dL/unit * Nutritional / Prandial insulin per carb ratio of 1 unit per 3 grams CHO consumed
--- NOTE | 2024-06-03 13:43 | Hospitalist Progress Note ---
Date of Service June 03, 2024 Assessment & Plan (1) Septic joint: (2) Acute hyperglycemia: (3) SELMA (acute kidney injury): Plan Yeyo Bauer is a 74y/o M with PMHx significant for DM type II, diabetic polyneuropathy, HTN, morbid obesity, anemia, hypersomnia with sleep apnea, history of prostate cancer, history of cancer, left fifth toe amputation and hyperlipidemia who presented to the ED for evaluation of a right knee infection via referral from [facility] Patient is now POD 1 from right knee polyethylene exchange, I&D. Septic Joint of Right Knee: now s/p I&D/polytethylene exchange 05/[address] Carnes -05/28 right knee effusion culture is growing MSSA. intraop cultures obtained, minimal growth given on abx ID consult for abx regimen for d/c planning -Currently on IV Cefazolin; awaiting ID recommendations for home regimen scheduled tylenol q8h; oxycodone prn (has utilized ONE dose/24 hours) Anticipate PICC line for intermediate designer abx; PICC consent obtained Discussed with case management; hopeful discharge for 1400 06/04 to coordinate with abx administration Acute on chronic blood loss anemia 2/2 post op trend H&H, Hgb 10.2; no overt signs of bleeding drain in place with sanguineous output Trend CBC in AM Acute Kidney Injury (SELMA): resolved Patient noted to have an SELMA with Cr of 2.7 on admission. likely iso infectious process/relative hypotension Continued good urine output Creatinine 1.07; trend in AM Elevated Troponin, PVCs: resolved likely demand iso infection Troponin 48.7 on presentation--> peaked at 87, down to 32. EKG showed sinus rhythm with frequent PVCs. No arrhythmia/ectopy noted HTN: Home enalapril on hold for now given SELMA and relative hypotension Chronic Anemia: Hgb 11.7 on admission, baseline Hgb ~12-13 per chart review. trend post op; today 10.2 Right Great Toe Ulceration: Patient was also recently seen and evaluated by Dr. Edmond Drew at [facility] in [place] on 05/27/2024 due to a great right toe wound. He had the wound debrided at that appointment and was prescribed a course of Omnicef. Wound care consult likely source of infection DM Type II Hyperglycemia: Resolving BSG 421 on presentation. S/p 10 units of Novolin-R insulin in the ED. BSG improved to 375 at 15:18 following insulin dose. SSI regimen while inpatient. Diabetic diet, SSI ACHS Most recent Hgb A1c was 8.4% on 05/29/2024 Glycemic pharmacy consulted Other Chronic Medical Conditions: Diabetic polyneuropathy --> Can continue home gabapentin as previously scheduled. CPAP HS ordered for ELVA. Disposition: PCP: Dr. Obregon DVT Prophylaxis: SCDs/TEDs for now pending surgical intervention tomorrow. Code Status: FULL CODE Admit to Med/Surg + Telemetry I spent a total of 87 minutes coordinating, documenting, and providing care for this patient excluding time spent in the performance of separately billed services. All of the aforementioned completed while collaborating with the assigned attending physician for a full treatment plan. Please see their addendum for further details. Admission and Anticipated Discharge Date Admission Date: May 30, 2024 Supervising Physician Co-Signing Physician Notes I have seen and discussed the case with the collaborating advanced practitioner. I agree with the above PN. I have reviewed and confirmed the patients medical history, the findings on physical examination, and the patients diagnosis and treatment plan with [facility] OLSEN and agree with the information documented. continue cefazolin q 8. PICC placed. confirm abx plan with ID. dispo home with HH I spent a total of 5 minutes coordinating, documenting, and providing care for this patient excluding time spent in the performance of separately billed services. All of the aforementioned completed outside of collaborating with the assigned advanced practitioner for a full treatment plan. I have reviewed the advanced practitioner's documentation, and I agree with, and take responsibility for the plan of care Subjective Pt sitting in his bedside chair; in no apparent distress Reports that his left knee is throbbing with sitting in his chair, but generally not in pain. Pt denies HERRERA, dizziness, SOB, chest pain, palpitations, N/V/D. Patient prefers going home vs rehab; has support from family including a son (EMT) and daughter (RN) Review of Systems Review of Systems: Neuro: (-) Falls, trauma, slurred speech HEENT: (-) HERRERA, dizziness, dysphagia, visual or auditory changes CV: (-) CP, palpitations, swelling Resp: (-) SOB GI: (-) appetite changes, N/V/D, bowel changes : (-) urinary changes Skin: (-) rashes Psych: (-) anxiety, depression Physical Exam Physical Exam: Neuro: AAOx4, PERRLA, no aphagia, memory changes, CNII-XII grossly intact HEENT: head normocephalic, moist mucus membranes CV: S1/S2, (-) M/G/R, (-) edema, cap refill < 3 seconds Resp: Lungs CTA in all bishop. On RA GI: Abdomen S/NT/ND, Ax4 bowel sounds, (-) CVA tenderness Musculoskeletal: 5/5 B/L UE strength, 5/5 B/L LE strength. left leg wrapped and elevated; did not visualize the incision Skin: (-) rashes , (-) erythema. Psych: euthymic mood Results & Data Results & Data Vital Signs (Past 12 Hours) Vital Signs Temp Pulse Pulse Resp BP Pulse Ox O2 Del Method 06/03/24 11:34 36.7 C 88 18 119/71 93 Room Air 06/03/24 08:10 Room Air 06/03/24 08:05 36.6 C 74 18 117/70 96 Room Air 06/03/24 07:15 79 06/03/24 03:10 36.8 C 78 16 115/61 97 Room Air Laboratory Results Short CBC 06/03/24 Range/Units 05:37 WBC 10.41 (4.8-10.8) K/ul Hgb 10.2 L (14.0-18.0) g/dl Hct 32.0 L (42.0-52.0) % Plt Count 304 (130-400) K/uL BMP 06/03/24 05:37 Sodium 138 Potassium 3.8 Chloride 103 Carbon Dioxide 30 BUN 24 H Creatinine 1.07 Glucose 108 H Calcium 8.1 L (1) Septic joint Laterality: right Septic arthritis location: knee Septic arthritis organism: staphylococcal Qualified Code(s): M00.061 - Staphylococcal arthritis, right knee
--- NOTE | 2024-06-03 14:26 | Infectious Disease Consult ---
Date of Service June 03, 2024 Telehealth Information I performed this visit using a real-time telehealth connection between my location and the patients location ([facility]). After connecting through interactive tele-video, patient was identified by name and date of and/or wristband check.Patient (or authorized healthcare media sales representative) was informed that this was a telemedicine visit and it was being conducted confidentially over secure lines. My office door was closed and no one else was present in the room with me.Patient (or authorized healthcare media sales representative) provided consent to proceed with the visit, expressed an understanding of privacy and security of the telemedicine visit, and gave permission to have a hospital media sales representative in the room in order to assist with the visit and to conduct portions of the visit, as needed. I informed the patient (or authorized healthcare media sales representative) that I reviewed their record and presented the opportunity for them to ask any questions regarding the visit today. The patient agreed to participate. Assessment & Plan (1) Prosthetic joint infection: Plan: This evolved likely from his toe. The joint is 4 years old and this was due to seeding from elsewhere. The toe is the most likely culprit. The patient underwent polyliner exchange only which is unfortunate. Full explant with abx spacer is recommended in these cases. He will be at high risk of infection persistence. (2) Toe ulcer: Plan: This appears clean at this time and shows no necrosis or cellulitis. Ongoing wound care and prevention of worsening ulceration will be important. Plan 1. Cefazolin 2g IV q 8 plus rifampin 300mg po bid x 6 weeks 2. While on the above regimen, he should have weekly CBC, CMP, and CRP 3. After completing the IV therapy, he should then be converted to cefadroxil 1g po bid plus continue the rifampin x 6 months 4. After completing the 6 months of combined PO therapy, the rifampin can be stopped and he will need to be continued on cefadroxil for life Because the joint was not explanted and had temporary spacer placement, he will be at high risk of persistent infection and eventual worsening. Follow-up in ID clinic is recommended in the next 4-6 weeks. History of Present Illness History of Present Illness Mr. Bauer has a h/o right TKA placed about 4 years prior to admission. This past summer he developed a wound on his big toe of that same leg. It was stable over the past few months until he noticed some bleeding and oozing from it last week. He saw his food service kitchen supervisor who "picked at it" and gave him some abx to take. Within two days, he had acute onset swelling and pain in his right TKA. He saw Ortho in clinic on 05/28 and had an aspiration done, revealing >150WBC and growth of MSSA. He was then sent to the ED on 05/30/24. He was taken to the OR on 05/31/24 and underwent drainage and polyliner exchange only. Today he complains of ongoing pain and discomfort, but feels well otherwise. He is seen alongside his and daughter who help provide some of the history. No fevers, N/V, diarrhea or rash. He believes his toe is improved. Allergies Allergy/AdvReac Type Severity Reaction Status Date / Time tramadol AdvReac Intermediate [place] Verified 05/31/24 11:47 "wacky" codeine AdvReac Mild [place] Verified 05/31/24 11:47 "wacky" Home Medications Medication Instructions Recorded Confirmed Type enalapril maleate 10 mg tablet 10 mg PO QAM #90 tabs 04/19/19 05/30/24 History (Vasotec) metformin 500 mg tablet 1,000 mg PO BID #180 tabs 04/19/19 05/30/24 History ibuprofen 200 mg tablet 400 mg PO Q6H PRN Pain 09/23/19 05/30/24 History insulin degludec 100 unit/mL 51 unit subcut QAM 09/23/19 05/30/24 History subcutaneous solution (Tresiba U-100 Insulin) magnesium oxide 500 mg PO Q OTHER DAY PRN Other 09/23/19 05/30/24 History acetaminophen 325 mg tablet 650 mg PO QID PRN Fever Or Pain 05/17/21 05/30/24 History (Tylenol) gabapentin 100 mg capsule 100 - 200 mg PO HS PRN leg pain 05/17/21 05/30/24 History cefdinir 300 mg capsule 300 mg PO BID 05/30/24 05/30/24 History Patient History Medical History Acute kidney injury Creatinine 2.7 on 05/29/24 preop labs in setting of septic joint/acute illness Knee effusion, right Morbid obesity Diabetic neuropathy B/L LE Osteoarthritis History of prostate cancer 2018- s/p XRT Diabetes mellitus, type 2 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 (possible localized XRT per previous records) No reported ROM limitations Hypertension Surgical History History of tooth extraction History of tonsillectomy Hx of LASIK History of total left knee replacement Left TKA (11/21/22): SAB at L3/4, 1 attempt + regional at [facility] History of total right knee replacement (~2019) History of surgical procedure on mouth Cancer removal from lip/mouth Hx of nasal polypectomy Hx of hernia repair History of amputation of toe x2 - left small toe, 2 "tips" right toes Family History Mother Family history of diabetes mellitus Other No family history of adverse response to anesthesia Social History Smoking Status: Former smoker Tobacco Type: Cigarettes and Smokeless Tobacco (Dip or Chew) Cigarettes Per Day: only at age 20; Second Hand Exposure: No; Do You Dip or Chew Tobacco: No (Quit 20 years ago); Hx Alcohol Use: No Hx Substance Use: No Preferred Language: [place] Communication Ability: Effective Shell Coremaker Required: No Beliefs That Will Affect Care: None marital status: Current Living Situation: Spouse Current Living Situation Comment: with Other Information That Helps Us Care for You: No Feels Safe at Home: Yes Safety Concerns: Feels Safe At This Time Assistive Devices: Lift Chair and Walker Review of Systems Gen- No fevers, malaise HEENT- No HERRERA or sore throat Resp- no cough or SOB CV- No chest pain GI- No N/V or diarrhea - No dysuria MSK- Right knee pain as per HPI Ext- Some edema, toe wound as per HPI Skin- No rash Neuro- No focal deficit Physical Exam Gen- NAD, cooperative with exam HEENT- NC AT Resp- Normal respirations on room air MSK- Right knee with surgical dressing in place. Right foot examined with dry toe ulcer appreciated. No tissue necrosis or cellulitis currently. Skin- No rash Neuro- Alert, oriented Results & Data Vital Signs (Past 12 Hours) Vital Signs Temp Pulse Pulse Resp BP Pulse Ox O2 Del Method 06/03/24 11:34 36.7 C 88 18 119/71 93 Room Air 06/03/24 08:10 Room Air 06/03/24 08:05 36.6 C 74 18 117/70 96 Room Air 06/03/24 07:15 79 06/03/24 03:10 36.8 C 78 16 115/61 97 Room Air Laboratory Results WBC 15K- > 10.41 Hgb 10.2 Platelets 304 Creatinine 1.07 BUN 24 UA with 6-10 WBC, 0-2 RBC Diagnostic Findings Right TKA synovial fluid analysis on 05/28: >150,000 WBC, 83% polys Right TKA XR from 05/28/24 reviewed by me Right TKA aspirate from 05/28/24 with MSSA Blood cultures 05/30/24 remain negative
--- NOTE | 2024-06-03 15:51 | Orthopedic Progress Note ---
Date of Service June 03, 2024 Assessment & Plan (1) Prosthetic joint infection: He is doing well with regards to his knee. Blood cultures have been negative. A PICC line has not been placed yet. Infectious disease has been consulted but their final note is not in the chart yet. He is currently on Ancef. I figure he will likely be started on rifampin twice a day as well. I will wait for infectious disease recommendations. He will likely need a PICC line placed. We are planning for discharge tomorrow. He is weightbearing as tolerated on the right knee. Inder Orona was seen and examined at bedside this morning. Overall he is doing well with his knee. He is currently on Ancef. The cultures have grown out MSSA. He has been seen by infectious disease today. He has no new complaints.. Review of Systems All systems reviewed & are unremarkable except as noted in HPI & below. Physical Exam On physical examination of the right knee, the drain has been pulled. The dressing is clean and dry. His leg is out full extension.. Results & Data Results & Data Laboratory Results . Diagnostic Findings . PG Care Time/CCT Total # of Minutes Spent Total Time Spent with Patient: Total time spent is greater than 50% in coordination of care (as documented) at patient's floor/unit and/or counseling patient: Coding Level of Care Code 70755 Post Operative Follow-Up Diagnoses Prosthetic joint infection T84.50XA
[2024-06-03] MEDS: MELATONIN 3 MG TAB PO PRN (22:30)
[2024-06-04 07:47] VITALS: TEMP 98.1; O2SAT 97
[2024-06-04 08:09] LABS: Basophils # (auto) 0.06 K/uL (0.00-0.20); Basophils % (auto) 0.5 %; Eosinophils # (auto) 0.27 K/uL (0.00-0.50); Eosinophils % (auto) 2.3 %; Hematocrit (blood only) 35.3 % (42.0-52.0); Hemoglobin 11.3 g/dl (14.0-18.0); Immature Granulocytes # (auto) 0.21 K/uL (0.01-0.20); Immature Granulocytes % (auto) 1.8 %; Lymphocytes # (auto) 2.81 K/uL (1.20-3.40); Lymphocytes % (auto) 24.5 %; Mean Corpuscular Hemoglobin 27.6 pg (25.0-34.0); Mean Corpuscular Volume 86.3 fL (80.0-100.0); Mean Platelet Volume 9.5 fL (9.4-12.4); Monocytes # (auto) 0.78 K/uL (0.11-0.59); Monocytes % (auto) 6.8 %; Neutrophils # (auto) 7.36 K/uL (1.40-6.50); Neutrophils % (auto) 64.1 %; Platelet Count 376 K/uL (130-400); RDW Coefficient of Variation 14.9 % (11.5-14.5); RDW Standard Deviation 47.2 fL (36.4-46.3); Red Blood Count 4.09 M/uL (4.70-6.10); White Blood Count 11.49 K/ul (4.8-10.8)
[2024-06-04 08:27] LABS: BUN Creatinine Ratio 20.2 (10-20); Calcium 8.5 mg/dl (8.6-10.3); Potassium 3.8 mmol/L (3.5-5.1)
--- NOTE | 2024-06-04 08:48 | Discharge Summary ---
Date of Service June 04, 2024 Admission HPI Per Admitting Provider Yeyo Bauer is a 74y/o M with PMHx significant for DM type II, diabetic polyneuropathy, HTN, morbid obesity, anemia, hypersomnia with sleep apnea, history of prostate cancer, history of cancer, left fifth toe amputation and hyperlipidemia who presented to the ED for evaluation of a right knee infection. History obtained from patient, at bedside and associated chart review. Patient seen with Dr. Bustos. Patient was seen and evaluated as an outpatient by [facility] on 05/28/2024 due to pain and swelling in his right knee. He underwent a right knee replacement performed by Dr. Mich Carnes approximately 4 years ago. Examination at that time showed a large right knee joint effusion, which was subsequently aspirated in the office. The fluid was very cloudy and suggestive of an acute infection, therefore was sent off for cultures. Patient was actually placed on the surgical schedule tomorrow (05/31/2024) for an open incision and drainage with a poly exchange of his right knee. Patient's preliminary right knee effusion culture is growing MSSA. Patient was also recently seen and evaluated by Dr. Edmond Drew at [facility] in [place] on 05/27/2024 due to a great right toe wound. He had the wound debrided at that appointment and was prescribed a course of Omnicef. Patient mentions that he started experiencing some swelling and pain in his right knee on Monday. This has gotten progressively worse to the point where he can barely bear any weight on his right lower extremity. He has been using a walker and also wheelchair at home to ambulate. He was instructed by the [facility] orthopedic office to come to the ED today as the culture from his joint aspiration was positive for bacterial growth. He had previously been taking Omnicef as per above. Denies any fevers, however his mentions he was dealing with some chills earlier in the week. No chest pain or SOB. Notices that his appetite has been decreased over the last few days. He has been experiencing some increased thirst and urination. Admission Exam Per Admitting Provider Physical Exam: Vitals signs as noted above General Appearance: Morbidly obese, no apparent distress Head: normocephalic, Atraumatic Eyes: normal inspection, EOMI Neck: supple, Trachea midline Respiratory/Chest: Decreased breath sounds, CTA, No accessory muscle use Cardiovascular: S1, S2, No murmur Abdomen/GI:Soft, Non tender, Bowel sounds present Extremities/Musculoskeletal:normal inspection, right knee swelling, erythema, tender, right great toe plantar ulcer, S/P R 1st, 2nd distal toe amputation, left fifth toe amputation Neurologic/Psych:AAOX3, grossly no focal neurological deficits Skin: normal color, warm Principal Diagnosis septic joint R Discharge Exam Neuro: AAOx4, PERRLA, no aphagia, memory changes, CNII-XII grossly intact HEENT: head normocephalic, moist mucus membranes CV: S1/S2, (-) M/G/R, (-) edema, cap refill < 3 seconds Resp: Lungs CTA in all bishop. On RA GI: Abdomen S/NT/ND, Ax4 bowel sounds, (-) CVA tenderness Musculoskeletal: 5/5 B/L UE strength, 5/5 B/L LE strength. left leg wrapped and elevated; did not visualize the incision Skin: (-) rashes , (-) erythema. Psych: euthymic mood Discharge Data Allergies Allergy/AdvReac Type Severity Reaction Status Date / Time tramadol AdvReac Intermediate [place] Verified 05/31/24 11:47 "wacky" codeine AdvReac Mild [place] Verified 05/31/24 11:47 "wacky" Consultations 05/30/24 15:01 ED Decision to Admit Stat 05/31/24 08:33 Consult Infectious Diseases Routine Procedures Performed Operation Date: 05/31/24 13:00 Actual Procedures p Right Knee Polyethylene Exchange, Irrigation and Debridement(Right) - Mich Carnes DO Ordered Studies 05/31/24 12:44 US - OR guided needle placemen Routine Hospital Course (1) Septic joint: (2) Acute hyperglycemia: (3) SELMA (acute kidney injury): Plan Yeyo Bauer is a 74y/o M with PMHx significant for DM type II, diabetic polyneuropathy, HTN, morbid obesity, anemia, hypersomnia with sleep apnea, history of prostate cancer, history of cancer, left fifth toe amputation and hyperlipidemia who presented to the ED for evaluation of a right knee infection via referral from [place] [facility] Patient is now POD 1 from right knee polyethylene exchange, I&D. Patient had a single luman picc placed yesterday and he was seen by Infectious Disease with the following recommendations: 1. Cefazolin 2g IV q 8 plus rifampin 300mg po bid x 6 weeks 2. While on the above regimen, he should have weekly CBC, CMP, and CRP 3. After completing the IV therapy, he should then be converted to cefadroxil 1g po bid plus continue the rifampin x 6 months 4. After completing the 6 months of combined PO therapy, the rifampin can be stopped and he will need to be continued on cefadroxil for life Case management was able to arrange Home Health to assist with abx administration and set up. Pt has family members that are able to help him with medication administration. Recommended he also utilize a probiotic. Total Time Total Time Spent Total Time Spent (In Minutes): I spent a total of 58 minutes coordinating, documenting, and providing care for this patient excluding time spent in the performance of separately billed services. All of the aforementioned completed while collaborating with the assigned attending physician for a full treatment plan. Please see their addendum for further details. Discharge Plan Discharge Items Patient Disposition: Home - Home Health Services Reason For Visit: SEPTIC JOINT Discharge Diagnosis: septic joint Condition on Discharge: Serious Activity: Per Instructions section Non-emergency contact: Primary Care Provider and Surgeon Call non-emergency contact if: you have any medication questions, your symptoms worsen, your pain is not controlled, your pain is unusual for you, your wound has increased redness, your wound has increased drainage and your wound pain has increased Follow-up/Referrals: June Obregon DO [Primary Care Provider] - (Date & Time 06/11/2024 3:00 PM Provider June Obregon DO Department Family Practice [facility] ) Nancy Louise MD [Physician] - (Date & Time 07/10/2024 9:00 AM Provider Nancy Louise MD Department Infectious Disease [facility] ) Diet: Regular and Heart Healthy Diet Texture: Easy to Chew Addtl Attending Provider Instructions: Mr. Bauer, you were admitted to the [facility] on 05/30 with concerns of your right knee joint being infected. You were evaluated at the beginning of the month by orthopedics on 05/28 who aspirated some fluid from your knee with showed a bacteria growth called MSSA, leading to your arrival to the emergency room. You were evaluated by Dr. Carnes with orthopedics who did a incision and drainage and polyliner exchange on 05/31. Given the nature of your infection, you will require termite renewal inspector antibiotic, initially through your PICC (peripherally inserted central catheter) line that was inserted. You were evaluated yesterday by Infectious Disease who made the following recommendations: 1. IV Cefazolin 2G IV Q8 x 6 weeks with an end date of 07/16. 2. Rifampin 300 mg by mouth twice daily x6 weeks; followed by another 6 months. 3. After completing the IV Cefazolin therapy, you will be converted to cefadroxil 1g by mouth twice daily plus continue the rifampin x 6 months 4. After completing the 6 months of combined cefadroxil and rifampin therapy, the rifampin can be stopped and you will need to be continued on cefadroxil for your life duration. You will have Home Health visit you at your home and, as discussed with you, your son and daughter in law are willing to assist you with antibiotic administration and care of your PICC line. RECOMMENDATIONS FOR FOLLOW-UP: A follow up appointment has been arranged with your PCP, Dr. Obregon for MondayJune 11 at 3:00 PM. A follow up appointment has been arranged with Infectious Disease for MondayJuly 10 OTHER INSTRUCTIONS: Seek medical attention if you have: * temperature above 101 * chest pain or trouble breathing * abdominal pain, nausea, vomiting * diarrhea, dark stools or bloody stools * any unanswered questions or concerns Call 911 if symptoms are severe. Please take good care of yourself. It has been a pleasure taking care of you. Please take care of yourself. If you have any questions regarding your recent hospitalization please contact [facility] and request Marty Crenshawist @ [phone]. Pending Studies at Discharge: No Stand-Alone Forms: My [facility], Smoking Cessation Medications and DC Order Prescriptions: New gabapentin 100 mg Capsule 200 mg PO HS Qty: 7 0RF rifampin 300 mg capsule 300 mg PO Q12H Qty: 60 0RF rifampin 300 mg capsule 300 mg PO Q12H 14 Days Qty: 28 0RF Rx Instructions: I have sent over a Rx for Rifampin earlier today for one months supply; will add an additional two weeks, hence the additional Rx Continued enalapril maleate [Vasotec] 10 mg tablet 10 mg PO QAM Qty: 90 metformin 500 mg tablet 1,000 mg PO BID Qty: 180 magnesium oxide 500 mg Tablet 500 mg PO Q OTHER DAY PRN (Reason: Other) insulin degludec [Tresiba U-100 Insulin] 100 unit/mL Solution 51 unit SUBCUT QAM acetaminophen [Tylenol] 325 mg Tablet 650 mg PO QID PRN (Reason: Fever Or Pain) Discontinued ibuprofen 200 mg Tablet 400 mg PO Q6H PRN (Reason: Pain) gabapentin 100 mg capsule 100 - 200 mg PO HS PRN (Reason: leg pain) cefdinir 300 mg capsule 300 mg PO BID Discharge Orders: Discharge Order (Routine); Ordered 06/04/24 Ordered By: Adore Arteaga Admission Data Admit Date/Time: 05/30/24 15:15 Attending Provider: Tamar Richard Admit Provider: Clyde Bustos Primary Care Provider: June Obregon Other Providers: Clyde Bustos; Maximilian Horvath; Carolina Styles; Loi Prajapati I.; Amauri Robison II; Nancy Louise; Dwaine Baltazar; Galen Franco; Tiffany Lerner; [facility] Other Interventions: Discharge Summary Assessment (RN) Last Done: 06/04/24 10:52 Supervising Physician Co-Signing Physician Notes I have seen and discussed the case with the collaborating advanced practitioner. I agree with the above PN. I have reviewed and confirmed the patients medical history, the findings on physical examination, and the patients diagnosis and treatment plan with [place] OLSEN and agree with the information documented. Agree with above plan, patient stable for discharge home, No complaints at bedside. Eager for discharge. abx secured with home health. I spent a total of 15 minutes coordinating, documenting, and providing care for this patient excluding time spent in the performance of separately billed servic es. All of the aforementioned completed outside of collaborating with the assigned advanced practitioner for a full treatment plan. I have reviewed the advanced practitioner's documentation, and I agree with, and take responsibility for the plan of care
[2024-06-04] MEDS: LANTUS PER UNIT CHARGE SC SCH (09:30)
[2024-06-04] MEDS: INFLUENZA VACC TS2024-25(65y+)/PF (IIV3) 0.5mL Syr IM ONE (09:54)
[2024-06-04 10:56] VITALS: BP 126/72; PULSE 72; RESP 18
== END 2024-06-04 12:21 | disposition home health service (06) | DRG 467 ==
LOC: ED 13:20 → SUATTDRO 15:15 → 2N 15:15 → 2W 17:30